=== PATIENT | female | born 1980 | race Caucasian/White ===

== ENCOUNTER → 2019-12-19 13:21 | Outpatient (BNVA) | payer OTHER, SELFPAY | PROVIDERS: PCP Internal Medicine; Visit Provider Physician Assistant | DX: Z76.89 Persons encountering health services in other specified circumstances (principal) ==

== ENCOUNTER 2020-01-26 08:19 | Outpatient (REF) | payer OTHER, SELFPAY | END 2020-01-26 08:20 | disposition home or self-care (01) | LOC: HO.LAB 08:19 | PROVIDERS: Visit Provider Internal Medicine | DX: Z20.828 Contact with and (suspected) exposure to other viral communicable diseases (principal) | CPT/HCPCS: C9803; U0003 ==

== ENCOUNTER → 2020-02-14 08:04 | Outpatient (BNVA) | payer OTHER, SELFPAY | PROVIDERS: PCP Internal Medicine; Referring Provider Internal Medicine; Visit Provider Physician Assistant | DX: Z76.89 Persons encountering health services in other specified circumstances (principal) ==

== ENCOUNTER → 2020-02-19 08:25 | Outpatient (BNVA) | payer OTHER, SELFPAY | PROVIDERS: PCP Internal Medicine; Referring Provider Internal Medicine; Visit Provider Dietitian, Registered | DX: Z76.89 Persons encountering health services in other specified circumstances (principal) ==

== ENCOUNTER → 2020-02-20 15:00 | Outpatient (BNV) | payer OTHER, SELFPAY | PROVIDERS: Visit Provider Internal Medicine | DX: D50.9 Iron deficiency anemia, unspecified (principal) | CPT/HCPCS: 99213; 99214; G2211 ==

== ENCOUNTER → 2020-03-12 08:11 | Outpatient (BNVA) | payer OTHER, SELFPAY | PROVIDERS: PCP Internal Medicine; Visit Provider Dietitian, Registered | DX: Z76.89 Persons encountering health services in other specified circumstances (principal) ==

== ENCOUNTER 2020-03-19 07:24 | Outpatient (REF) | payer OTHER, SELFPAY | END 2020-03-19 07:25 | disposition home or self-care (01) | LOC: HO.LAB 07:24 | PROVIDERS: PCP Internal Medicine; Visit Provider Internal Medicine | DX: Z20.822 Contact with and (suspected) exposure to COVID-19 (principal) | CPT/HCPCS: 36415; C9803; U0003 ==

== ENCOUNTER 2020-03-20 06:22 | Outpatient (REF) | payer OTHER, SELFPAY ==
[2020-03-20 07:08] LABS: MANUAL DIFF FLAG NO
[2020-03-20 07:15] LABS: Basophils Absolute Auto 0.1 X10*3/uL (0.0-0.2); Basophils Percent Auto 0.7 % (0-2); Eosinophils Absolute Auto 0.1 X10*3/uL (0.0-0.4); Eosinophils Percent Auto 1.4 % (0-4); Hematocrit 35.8 % (37-47); Hemoglobin 11.1 g/dl (12.0-16.0); Imm Gran Abs Auto 0.02 X10*3/uL (0.00-0.03); Imm Gran Pct Auto 0.2 % (0.0-0.4); Lymphocytes Absolute Auto 2.9 X10*3/uL (1.2-4.9); Lymphocytes Percent Auto 33.1 % (20-40); Mean Corpuscular Volume 83.8 fL (80-98); Mean Platelet Volume 9.6 fL (9.4-12.3); Monocytes Absolute Auto 0.7 X10*3/uL (0.1-1.2); Monocytes Percent Auto 7.9 % (2-11); Neutrophils Percent Auto 56.7 % (45-73); Platelet Count 489 X10*3/uL (160-400); Red Blood Count 4.27 X10*6/uL (4.20-5.50); Red Cell Distribution Width 14.1 % (11.0-16.0); White Blood Count 8.8 X10*3/uL (4.8-10.8)
[2020-03-20 07:32] LABS: Alanine Aminotransferase 9 U/L (0-31); Alkaline Phosphatase 99 U/L (39-117); Anion Gap 14 (12-20); Aspartate Amino Transferase 12 U/L (5-31); Bilirubin Total 0.4 mg/dL (0.0-1.0); Blood Urea Nitrogen 14 mg/dL (9-16); C Reactive Protein 0.11 mg/dL (< or = 0.50); Calcium 8.6 mg/dL (8.4-10.2); Carbon Dioxide 25 mmol/L (22-29); Chloride 105 mmol/L (96-108); Cholesterol 192 mg/dL; Estimated Glomerular Filt Rate > 60; Glucose Fasting 91 mg/dL (60-99); HDL Cholesterol 76 mg/dL; Iron 83 mcg/dL (30-160); LDL Cholesterol Calculated 106 mg/dl; Percent Iron Saturation 22 % (15-50); Sodium 140 mmol/L (135-145); Total Iron Binding Capacity 373 mcg/dL (228-428); Total Protein 6.8 g/dL (6.5-8.0); Triglycerides 54 mg/dL; Unsaturated Iron Binding 290 ug/dL
[2020-03-20 07:54] LABS: Ferritin 4 ng/mL (10-122); TSH reflex Free T4 2.15 mIU/mL (0.32-4.0); Vitamin D 25-OH Total 19.7 ng/mL (>30)
[2020-03-20 08:00] LABS: Estimated Average Glucose 103 mg/dL; Hemoglobin A1c % 5.2 %
[2020-03-20 08:11] LABS: Folate 9.7 ng/mL (> or = 4.0); Vitamin B12 449 pg/mL (200-900)
[2020-03-21 06:17] LABS: Insulin Level Total 11.7 uIU/mL
[2020-03-21 16:52] LABS: Calcium (PTHI) 8.8 mg/dL (8.6-10.2); PTHI 100 pg/mL (14-64)
[2020-03-23 12:12] LABS: Vitamin B1 7 nmol/L (8-30)
[2020-03-23 16:07] LABS: Zinc 67 mcg/dL (60-130)
[2020-03-26 17:47] LABS: Vitamin A 36 mcg/dL (38-98)
== END 2020-03-20 06:23 | disposition home or self-care (01) ==
LOC: HO.LAB 06:22
PROVIDERS: PCP Internal Medicine; Referring Provider Internal Medicine; Visit Provider Physician Assistant
DX: E66.01 Morbid (severe) obesity due to excess calories (principal); K91.2 Postsurgical malabsorption, not elsewhere classified; Z98.84 Bariatric surgery status; Z90.3 Acquired absence of stomach [part of]
CPT/HCPCS: 36415; 80053; 80061; 82306; 82607; 82728; 82746; 83036; 83525; 83540; 83970; 84425; 84443; 84590; 84630; 85025; 86140

== ENCOUNTER 2020-04-08 08:41 | Outpatient (REF) | payer OTHER, SELFPAY ==
--- NOTE | 2020-04-08 08:45 | FL_ITS ---
EXAMINATION: XR GI SERIES CLINICAL INFORMATION: Dysphagia. Post gastric bypass. COMPARISON: Previous upper GI most recent May 2016 TECHNIQUE: Upper GI was performed using thin and thick barium and effervescent granules. A barium tablet was also administered. FINDINGS: There is abnormal esophageal motility with retrograde peristalsis of liquid barium with the patient upright. No reflux could be documented with the patient prone. No significant hernia is seen. The barium tablet passed freely into the stomach. There are postsurgical changes from gastric bypass. There is a very small gastric remnant. No ulcer or mass is appreciated. There is no evidence of obstruction. FLUOROSCOPY TIME: 1.7 min Dose: 56 mgy, DAP 13 kinney per centimeter squared. 36 saved fluoroscopic images. FL/FL upper GI series IMPRESSION: Abnormal esophageal motility with retrograde peristalsis of liquid barium with the patient in the upright position. Stable postoperative changes from gastric bypass.
== END 2020-04-08 08:42 | disposition home or self-care (01) ==
LOC: HO.XRAY 08:41
PROVIDERS: Visit Provider Internal Medicine
DX: K21.9 Gastro-esophageal reflux disease without esophagitis (principal); J39.2 Other diseases of pharynx
CPT/HCPCS: 74240

== ENCOUNTER 2020-04-09 09:43 | Outpatient (REF) | payer OTHER, SELFPAY | END 2020-04-09 09:44 | disposition home or self-care (01) | LOC: HO.LAB 09:43 | PROVIDERS: Visit Provider Internal Medicine | DX: Z20.822 Contact with and (suspected) exposure to COVID-19 (principal) | CPT/HCPCS: 36415; C9803; U0003; U0005 ==

== ENCOUNTER → 2020-07-31 08:20 | Outpatient (BNVA) | payer OTHER, SELFPAY | PROVIDERS: PCP Internal Medicine; Visit Provider Dietitian, Registered | DX: E66.9 Obesity, unspecified (principal); Z68.33 Body mass index [BMI] 33.0-33.9, adult | CPT/HCPCS: 97803 ==

== ENCOUNTER → 2020-08-28 08:17 | Outpatient (BNVA) | payer OTHER, SELFPAY | PROVIDERS: PCP Internal Medicine; Visit Provider Dietitian, Registered ==

== ENCOUNTER → 2020-11-12 09:23 | Outpatient (BNVA) | payer OTHER, SELFPAY | PROVIDERS: PCP Internal Medicine; Referring Provider Internal Medicine; Visit Provider Physician Assistant ==

== ENCOUNTER 2021-02-11 10:57 | Outpatient (REF) | payer OTHER, SELFPAY | END 2021-02-11 10:58 | disposition home or self-care (01) | LOC: HO.LAB 10:57 | PROVIDERS: Visit Provider Internal Medicine | DX: Z20.822 Contact with and (suspected) exposure to COVID-19 (principal) | CPT/HCPCS: C9803; U0003; U0005 ==

== ENCOUNTER → 2021-03-23 09:53 | Outpatient (BNVA) | payer OTHER, SELFPAY | PROVIDERS: PCP Internal Medicine; Referring Provider Internal Medicine; Visit Provider Nurse Practitioner Family | DX: K58.2 Mixed irritable bowel syndrome (principal); K21.9 Gastro-esophageal reflux disease without esophagitis; R13.14 Dysphagia, pharyngoesophageal phase | CPT/HCPCS: 99202 ==

== ENCOUNTER 2021-04-07 08:37 | Outpatient (REF) | payer OTHER, SELFPAY ==
[2021-04-07 10:59] LABS: TSH reflex Free T4 1.22 uIU/mL (0.32-4.0)
[2021-04-07 11:43] LABS: Folate 10.8 ng/mL (> or = 4.0); Vitamin B12 453 pg/mL (200-900)
[2021-04-09 14:21] LABS: Transglutaminase Ab IgG <1.0 U/mL; Transglutaminase IgA <1.0 U/mL
[2021-04-12 15:51] LABS: Vitamin D 25-OH, D2 <4 ng/mL; Vitamin D 25-OH, D3 12 ng/mL; Vitamin D 25-OH, Total 12 ng/mL (30-100)
== END 2021-04-07 08:38 | disposition home or self-care (01) ==
LOC: HO.LAB 08:37
PROVIDERS: PCP Internal Medicine; Visit Provider Nurse Practitioner Family
DX: R10.11 Right upper quadrant pain (principal); R19.7 Diarrhea, unspecified; R14.0 Abdominal distension (gaseous); E55.9 Vitamin D deficiency, unspecified
CPT/HCPCS: 36415; 82306; 82607; 82746; 84443; 86364

== ENCOUNTER → 2021-07-28 09:48 | Outpatient (BNVA) | payer OTHER, SELFPAY | PROVIDERS: PCP Internal Medicine; Referring Provider Internal Medicine; Visit Provider Physician Assistant Surgical | DX: E66.9 Obesity, unspecified (principal); Z68.35 Body mass index [BMI] 35.0-35.9, adult | CPT/HCPCS: 99212 ==

== ENCOUNTER 2021-08-24 08:39 | Outpatient (REF) | payer OTHER, SELFPAY ==
[2021-08-24 11:23] LABS: Ferritin 2 ng/mL (10-250)
[2021-08-24 11:26] LABS: Iron 32 mcg/dL (30-160); Percent Iron Saturation 8 % (15-50); Total Iron Binding Capacity 415 mcg/dL (228-428); Unsaturated Iron Binding 383 ug/dL
[2021-08-24 11:48] LABS: Folate 11.7 ng/mL (> or = 4.0); Vitamin B12 314 pg/mL (200-900)
[2021-08-27 16:41] LABS: Vitamin A 36 mcg/dL (38-98)
[2021-08-30 14:56] LABS: Vitamin B1 7 nmol/L (8-30)
== END 2021-08-24 08:40 | disposition home or self-care (01) ==
LOC: HO.LAB 08:39
PROVIDERS: PCP Internal Medicine; Visit Provider Physician Assistant Surgical
DX: D50.9 Iron deficiency anemia, unspecified (principal); E66.9 Obesity, unspecified
CPT/HCPCS: 36415; 82306; 82607; 82728; 82746; 83540; 84425; 84590

== ENCOUNTER 2022-03-11 12:56 | Outpatient (REF) | payer OTHER, SELFPAY | END 2022-03-11 12:57 | disposition home or self-care (01) | LOC: HO.MDS 12:56 | PROVIDERS: Visit Provider Internal Medicine | DX: D50.9 Iron deficiency anemia, unspecified (principal) | CPT/HCPCS: 96365; J1756 ==

== ENCOUNTER 2022-03-18 12:43 | Outpatient (REF) | payer OTHER, SELFPAY | END 2022-03-18 12:44 | disposition home or self-care (01) | LOC: HO.MDS 12:43 | PROVIDERS: PCP Internal Medicine; Visit Provider Internal Medicine | DX: D50.9 Iron deficiency anemia, unspecified (principal) | CPT/HCPCS: 96365; J1756 ==

== ENCOUNTER 2022-03-26 12:48 | Outpatient (REF) | payer OTHER, SELFPAY | END 2022-03-26 12:49 | disposition home or self-care (01) | LOC: HO.MDS 12:48 | PROVIDERS: Visit Provider Internal Medicine | DX: D50.9 Iron deficiency anemia, unspecified (principal) | CPT/HCPCS: 96365; J1756 ==

== ENCOUNTER 2022-04-01 12:47 | Outpatient (REF) | payer OTHER, SELFPAY | END 2022-04-01 12:48 | disposition home or self-care (01) | LOC: HO.MDS 12:47 | PROVIDERS: Visit Provider Internal Medicine | DX: D50.9 Iron deficiency anemia, unspecified (principal) | CPT/HCPCS: 96365; J1756 ==

== ENCOUNTER 2022-04-08 12:46 | Outpatient (REF) | payer OTHER, SELFPAY | END 2022-04-08 12:47 | disposition home or self-care (01) | LOC: HO.MDS 12:46 | PROVIDERS: Visit Provider Internal Medicine | DX: D50.9 Iron deficiency anemia, unspecified (principal) | CPT/HCPCS: 96365; J1756 ==

== ENCOUNTER → 2022-04-12 08:36 | Outpatient (BNVA) | payer OTHER, SELFPAY | PROVIDERS: PCP Internal Medicine; Visit Provider Nurse Practitioner Family | DX: K59.00 Constipation, unspecified (principal); D50.9 Iron deficiency anemia, unspecified; K21.9 Gastro-esophageal reflux disease without esophagitis | CPT/HCPCS: 99212 ==

== ENCOUNTER 2022-10-15 09:05 | Outpatient (REF) | payer OTHER, SELFPAY ==
--- NOTE | ~2022-10-15 | MM_ITS ---
EXAMINATION: MM SCREENING DIGITAL BREAST TOMOSYNTHESIS, BILATERAL CLINICAL INFORMATION: Screening. Asymptomatic. COMPARISON: Mammography: This is a baseline study. TECHNIQUE: Digital breast tomosynthesis is performed in both the craniocaudal and mediolateral oblique views along with computer-aided detection (CAD). Synthesized 2D images are generated from the tomosynthesis. FINDINGS: There are scattered areas of fibroglandular density (ACR BI-RADS breast composition Category b). There are no significant masses, abnormal calcifications, or other abnormalities. MM/MM tomosynthesis screening BI IMPRESSION: No mammographic evidence of malignancy. ASSESSMENT: BI-RADS BI-RADS 1 - Negative RECOMMENDATION: Routine annual mammography screening. 1 year F/U This examination should not preclude the clinical evaluation of a suspicious palpable abnormality. This patient's information was entered into a reminder system with a target due date for their next mammogram.
== END 2022-10-15 09:06 | disposition home or self-care (01) ==
LOC: HO.MAMMO 09:05
PROVIDERS: PCP Internal Medicine; Visit Provider Internal Medicine
DX: Z12.31 Encounter for screening mammogram for malignant neoplasm of breast (principal)
CPT/HCPCS: 77063; 77067

== ENCOUNTER → 2022-10-15 09:15 | Outpatient (BNV) | payer OTHER, SELFPAY | PROVIDERS: PCP Internal Medicine; Visit Provider Radiology Diagnostic Radiology | DX: Z12.31 Encounter for screening mammogram for malignant neoplasm of breast (principal) | CPT/HCPCS: 77063; 77067 ==

== ENCOUNTER 2022-12-01 08:49 | Outpatient (AMB) | payer OTHER, SELFPAY ==
--- NOTE | 2022-12-01 09:01 | MHC.OFFVISWM ---
Intake VS Expanded 12/01/22 09:07 Height 5 ft 2 in Weight 193 lb 12.8 oz BMI 35.4 BP 134/60 Blood Pressure Location Rt brachial Blood Pressure Position Sitting Pulse 91 Pulse Source Pulse Oximeter Temp 98.2 F Temperature Source Temporal Artery Scan Pulse Oximetry 100 Oxygen Delivery Method Room Air Body Fat 84.6 Body Fat Percentage 43.7 Free Fat Mass 109.2 Muscle Mass 103.6 Visceral Mass 10.0 Water Mass 78.0 BMR 1,536 Intake Visit Reasons: (OV) PO GBP 02/16/2016 Certified Recreational Therapist Required: No Allergies oxycodone [OXYCODONE] Allergy (Severe, Verified 12/01/22 09:04) ANAPHYLAXIS (Tylenol #3 is o.k.) morphine [MORPHINE] Allergy (Intermediate, Verified 12/01/22 09:04) HIVES/DIFF BREATHING (tylenol #3 is o.k.) Medication List - Last Reconciled 12/01/22 by BELTRAN Clifford albuterol sulfate 90 mcg/actuation (Ventolin HFA) 2 puffs inhalation Q4-6H PRN albuterol sulfate 90 mcg/actuation 2 puffs PO QID PRN 30 days cetirizine 10 mg PO DAILY fluticasone propionate 110 mcg/actuation (Flovent HFA) 2 puffs inhalation BID 30 days hydroxyzine HCl 25 mg PO Q8H PRN montelukast 10 mg PO DAILY 90 days omeprazole 40 mg PO DAILY polyethylene glycol 3350 (Miralax) 17 grams PO DAILY HPI HPI Comments History of Present Illness Details 42-year-old female presents to the office for follow-up gastric bypass performed on 02/16/2016. Weight today is 193.8 lb with a BMI of 35.5. She was last seen in the office on 07/28/2021 with a weight of 193.6 lb and BMI of 35.4. States she would like to lose a little more weight. She was lost to follow up as she did not feel the need to come in to the office. not taking mvi Not following a meal plan Premier protein RTD shake another shake or salald w 4 oz chicken shake or small meal (1 serving spoon of rice, 1/2 beans, 1/2 veg or 1/2 meat) exercise: walking outside 30-45 min 2 x per day Any post op complications: none JAKE: resolved DM: never HTN: never Hyperlipidemia: never GERD:?0-5 scale ??0 = no symptoms ??1 = symptoms noticeable but not bothersome 2 =symptoms bothersome but not daily ? 3 = symptoms bothersome and daily 4 = symptoms affect daily activities 5 = symptoms are incapacitating, unable to do daily activities ? How bad is the heartburn: 0 ? Heartburn while lying down: 0 ? Heartburn when standing up: 0 ? Heartburn after meals: 0 ? Does heartburn change your diet: 0 ? Does heartburn wake you up from sleep: 0 ? Do you have difficulty swallowin ? Do you have pain with swallowin ? If you take medicine for your reflux, does this affect your daily life: 0 Satisfaction with present condition - satisfied or not satisfied: not satisifed [facility] Medical History Vitamin D deficiency Allergic rhinitis Anxiety GERD (gastroesophageal reflux disease) Asthma Obesity (BMI 30-39.9) Intestinal malabsorption following gastrectomy Surgical History History of tubal ligation History of breast biopsy H/O bilateral breast reduction surgery History of cholecystectomy History of appendectomy S/P gastric bypass Hx of laparoscopic gastric banding Hx of appendectomy Hx laparoscopic cholecystectomy Family History Father No problems noted. Mother Arthritis Obesity Brother No problems noted. Brother No problems noted. Sister No problems noted. Sister No problems noted. Sister No problems noted. Son No problems noted. Son No problems noted. Daughter No problems noted. Father No problems noted. 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 [employer] Cognitive needs: No Hearing needs: No Vision needs: Yes Review of Systems Const All systems reviewed & are unremarkable except as noted in HPI and below Physical Exam Vital Signs: Last Vital Signs Temp 98.2 F 12/01/22 09:07 Pulse 91 12/01/22 09:07 BP 134/60 12/01/22 09:07 Pulse Ox 100 12/01/22 09:07 Oxygen Delivery Method Room Air 12/01/22 09:07 BMI result Body Mass Index 35.4 Const General: cooperative and no acute distress Orientation/consciousness: patient oriented x3 Resp Effort & Inspection: normal respiratory effort Auscultation: clear to auscultation bilaterally Cardio Rate: regular rate Rhythm: regular rhythm GI Inspection: Yes normal to inspection and Yes incision (well healed) Palpation (GI): Soft to palpation and no masses Neuro General: patient oriented x3 Assessment & Plan Assessment & Plan (1) S/P gastric bypass: Comment: FRANCISCO 02/16/16, Dr. Salazar Code(s): Z98.84 - Bariatric surgery status Plan: meal plan : Premier protein RTD shake meal 6 forks/6 forks x 2 continue PPI check yearly labs start celebrate mvi w iron daily and ginger + D bid [employer] staci 300 calories daily or more rtc 6 weeks Orders: Orders Lipid Panel Today D50.9 - Iron deficiency anemia, unspecified, E55.9 - Vitamin D deficiency, unspecified, K91.2 - Postsurgical malabsorption, not elsewhere classified, Z90.3 - Acquired absence of stomach [part of], Z98.84 - Bariatric surgery status IRON PROFILE Today D50.9 - Iron deficiency anemia, unspecified, E55.9 - Vitamin D deficiency, unspecified, K91.2 - Postsurgical malabsorption, not elsewhere classified, Z90.3 - Acquired absence of stomach [part of], Z98.84 - Bariatric surgery status Complete Blood Count Auto Diff Today D50.9 - Iron deficiency anemia, unspecified, E55.9 - Vitamin D deficiency, unspecified, K91.2 - Postsurgical malabsorption, not elsewhere classified, Z90.3 - Acquired absence of stomach [part of], Z98.84 - Bariatric surgery status Vitamin B1 Today D50.9 - Iron deficiency anemia, unspecified, E55.9 - Vitamin D deficiency, unspecified, K91.2 - Postsurgical malabsorption, not elsewhere classified, Z90.3 - Acquired absence of stomach [part of], Z98.84 - Bariatric surgery status C Reactive Protein Today D50.9 - Iron deficiency anemia, unspecified, E55.9 - Vitamin D deficiency, unspecified, K91.2 - Postsurgical malabsorption, not elsewhere classified, Z90.3 - Acquired absence of stomach [part of], Z98.84 - Bariatric surgery status Ferritin Today D50.9 - Iron deficiency anemia, unspecified, E55.9 - Vitamin D deficiency, unspecified, K91.2 - Postsurgical malabsorption, not elsewhere classified, Z90.3 - Acquired absence of stomach [part of], Z98.84 - Bariatric surgery status Vitamin D 25-OH Total Today D50.9 - Iron deficiency anemia, unspecified, E55.9 - Vitamin D deficiency, unspecified, K91.2 - Postsurgical malabsorption, not elsewhere classified, Z90.3 - Acquired absence of stomach [part of], Z98.84 - Bariatric surgery status Insulin Today D50.9 - Iron deficiency anemia, unspecified, E55.9 - Vitamin D deficiency, unspecified, K91.2 - Postsurgical malabsorption, not elsewhere classified, Z90.3 - Acquired absence of stomach [part of], Z98.84 - Bariatric surgery status Vitamin B12 and Folate Today D50.9 - Iron deficiency anemia, unspecified, E55.9 - Vitamin D deficiency, unspecified, K91.2 - Postsurgical malabsorption, not elsewhere classified, Z90.3 - Acquired absence of stomach [part of], Z98.84 - Bariatric surgery status Zinc Today D50.9 - Iron deficiency anemia, unspecified, E55.9 - Vitamin D deficiency, unspecified, K91.2 - Postsurgical malabsorption, not elsewhere classified, Z90.3 - Acquired absence of stomach [part of], Z98.84 - Bariatric surgery status Vitamin A Today D50.9 - Iron deficiency anemia, unspecified, E55.9 - Vitamin D deficiency, unspecified, K91.2 - Postsurgical malabsorption, not elsewhere classified, Z90.3 - Acquired absence of stomach [part of], Z98.84 - Bariatric surgery status PTHI Today D50.9 - Iron deficiency anemia, unspecified, E55.9 - Vitamin D deficiency, unspecified, K91.2 - Postsurgical malabsorption, not elsewhere classified, Z90.3 - Acquired absence of stomach [part of], Z98.84 - Bariatric surgery status TSH reflex Free T4 Today D50.9 - Iron deficiency anemia, unspecified, E55.9 - Vitamin D deficiency, unspecified, K91.2 - Postsurgical malabsorption, not elsewhere classified, Z90.3 - Acquired absence of stomach [part of], Z98.84 - Bariatric surgery status Basic Metabolic Panel Today D50.9 - Iron deficiency anemia, unspecified, E55.9 - Vitamin D deficiency, unspecified, K91.2 - Postsurgical malabsorption, not elsewhere classified, Z90.3 - Acquired absence of stomach [part of], Z98.84 - Bariatric surgery status Coding Level of Care Code Est Pt Level 4 (89653) Diagnoses S/P gastric bypass Z98.84 Time Spent (min) 45
[2022-12-01 09:07] VITALS: BP 134/60; PULSE 91; TEMP 36.8; O2SAT 100; BMI 35.4
== END 2022-12-01 09:36 | disposition home or self-care (01) ==
PROVIDERS: PCP Internal Medicine; Visit Provider Physician Assistant Surgical
DX: E66.9 Obesity, unspecified (principal); Z68.35 Body mass index [BMI] 35.0-35.9, adult; Z90.3 Acquired absence of stomach [part of]; Z98.84 Bariatric surgery status
CPT/HCPCS: 99215

== ENCOUNTER → 2022-12-01 08:49 | Outpatient (BNVA) | payer OTHER, SELFPAY | PROVIDERS: PCP Internal Medicine; Visit Provider Physician Assistant Surgical | DX: Z98.84 Bariatric surgery status (principal) | CPT/HCPCS: 99212 ==

== ENCOUNTER 2023-01-05 11:58 | Outpatient (REF) | payer OTHER, SELFPAY | END 2023-01-05 11:59 | disposition home or self-care (01) | LOC: HO.MDS 11:58 | PROVIDERS: Visit Provider Internal Medicine | DX: D50.8 Other iron deficiency anemias (principal) | CPT/HCPCS: 96365; J1756 ==

== ENCOUNTER 2023-01-14 08:40 | Outpatient (REF) | payer OTHER, SELFPAY | END 2023-01-14 08:41 | disposition home or self-care (01) | LOC: HO.MDS 08:40 | PROVIDERS: Visit Provider Internal Medicine | DX: D50.8 Other iron deficiency anemias (principal) | CPT/HCPCS: 96365; J1756 ==

== ENCOUNTER 2023-01-19 08:44 | Outpatient (REF) | payer OTHER, SELFPAY | END 2023-01-19 08:45 | disposition home or self-care (01) | LOC: HO.MDS 08:44 | PROVIDERS: Visit Provider Internal Medicine | DX: D50.8 Other iron deficiency anemias (principal) | CPT/HCPCS: 96365; J1756 ==

== ENCOUNTER 2023-01-24 11:31 | Outpatient (REF) | payer OTHER, SELFPAY | END 2023-01-24 11:32 | disposition home or self-care (01) | LOC: HO.MDS 11:31 | PROVIDERS: Visit Provider Internal Medicine | DX: D50.8 Other iron deficiency anemias (principal) | CPT/HCPCS: 96365; J1756 ==

== ENCOUNTER 2023-02-04 08:57 | Outpatient (REF) | payer OTHER, SELFPAY | END 2023-02-04 08:58 | disposition home or self-care (01) | LOC: HO.MDS 08:57 | PROVIDERS: Visit Provider Internal Medicine | DX: D50.8 Other iron deficiency anemias (principal) | CPT/HCPCS: 96365; J1756 ==

== ENCOUNTER 2023-06-06 10:31 | Outpatient (AMB) | payer OTHER, SELFPAY ==
--- NOTE | 2023-06-06 10:36 | MHC.PC.OV ---
Vital Signs 06/06/23 10:39 Height 5 ft 2 in Weight 194 lb 8 oz BMI 35.6 BP 130/72 Blood Pressure Location Rt brachial Position Sitting Pulse 63 Pulse Source Pulse Oximeter Pulse Oximetry (%) 100 Oxygen Delivery Method Room Air Intake Visit Reasons: 6mth f/u ( rescheduled) Intake Note: Patient is here to follow up on Asthma, Arthralgia, GERD, Anxiety. Complaint of left arm pain ongoing for two months. Milieu Manager Required: No Operations Analyst: Not Required per policy Accompanied by: Self / Same As Patient Allergies oxycodone [OXYCODONE] Allergy (Severe, Verified 06/06/23 16:07) ANAPHYLAXIS (Tylenol #3 is o.k.) morphine [MORPHINE] Allergy (Intermediate, Verified 06/06/23 16:07) HIVES/DIFF BREATHING (tylenol #3 is o.k.) Medication List - Last Reconciled 06/06/23 by Gabriele Means MD albuterol sulfate 90 mcg/actuation (Ventolin HFA) 2 puffs inhalation Q4-6H PRN albuterol sulfate 90 mcg/actuation 2 puffs PO QID PRN 30 days cetirizine 10 mg PO DAILY fluticasone propionate 110 mcg/actuation (Flovent HFA) 2 puffs inhalation BID 30 days hydroxyzine HCl 25 mg PO Q8H PRN montelukast 10 mg PO DAILY 90 days omeprazole 40 mg PO DAILY polyethylene glycol 3350 (Miralax) 17 grams PO DAILY Tobacco use date assessed: 06/06/23 Dental Screening Dental Screen Date: 06/06/23 Did you have a dental visit in the last 12 months?: Yes Did you have a dental problem in the last 6 months where you did not have access to dental care?: No Was dental information given to patient?: Patient has dentist HPI 6mth f/u ( rescheduled) HPI Details Patient comes in today for her follow up visit She continues to follow up with hematology regularly for IV iron infusions every 6 months or so Her last H/H in December 2022 were still low at 9.9/32.8 and she has not had any follow up labs done since She is scheduled for her next IV iron infusion in a couple of weeks on 06/22/2023 States that she has been experiencing increased pain over her left shoulder for a while now and lately has hardly been able to raise her left arm above the shoulder level due to the pain Admits that she does have a habit of sleeping on her left side often but other than that, does not recall any recent injury or trauma to her left shoulder She denies any headaches or dizziness; relates (+) fatigue but this is likely due to her anemia She denies any chest pains, no increased SOB No nausea/vomiting, no abdominal pain No change in bowel habits noted Needs her Omeprazole Rx refilled today PFSH Medical History Vitamin D deficiency Allergic rhinitis Anxiety GERD (gastroesophageal reflux disease) Asthma Obesity (BMI 30-39.9) Intestinal malabsorption following gastrectomy Surgical History History of tubal ligation History of breast biopsy H/O bilateral breast reduction surgery History of cholecystectomy History of appendectomy S/P gastric bypass Hx of laparoscopic gastric banding Hx of appendectomy Hx laparoscopic cholecystectomy Family History Father No problems noted. Mother Arthritis Obesity Brother No problems noted. Brother No problems noted. Sister No problems noted. Sister No problems noted. Sister No problems noted. Son No problems noted. Son No problems noted. Daughter No problems noted. Father No problems noted. 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 1. Little interest or pleasure in doing things: not at all 2. Feeling down, depressed, or hopeless: not at all 3. Trouble falling or staying asleep, or sleeping too much: not at all 4. Feeling tired or having little energy: not at all 5. Poor appetite or overeating: not at all 6. Feeling bad about yourself - or that you are a failure or have let yourself or your family down: not at all 7. Trouble concentrating on things, such as reading the newspaper or watching television: not at all 8. Moving or speaking so slowly that other people could have noticed. Or the opposite - being so fidgety or restless that you have been moving around a lot more than usual: not at all 9. Thoughts that you would be better off or of hurting yourself in some way: not at all Total score: 0 Depression Screening Interpretation: Negative Depression Screening Done: Yes 74651 - PHQ-9 Billing: Yes Source: Developed by Drs. Dom Britt, Ami Pratt, Americo Pastrana and colleagues, with an educational tseven from [employer]. Thrive Questionnaire Date Thrive assessed: 06/06/23 I am a: Patient What is your living situation today?: I have a steady place to live Within the past 12 months, did the food you bought not last and you didn't have the money to get more?: Never true Within the past 12 months, did you worry whether your food would run out before you got money to buy more?: Never true Do you have trouble paying for medicines?: No Do you have trouble getting transportation to medical appointments?: No Do you have trouble paying your heating and electricity bill?: No Do you have trouble taking care of your child, family member or friend?: No Do you have trouble with day-to-day activities such as bathing, preparing meals, shopping, managing finances, etc.?: No Are you currently unemployed and looking for a job?: No Are you interested in more education?: No Currently or been in a relationship where the following occur: no concerns reported THRIVE Score: 0 AUDIT C Alcohol Use Questionnaire (AUDIT-C) 1. How often do you have a drink containing alcohol?: Never 3. How often do you have six or more drinks on one occasion?: Never Total Score: 0 Score Reviewed/Action Taken: Yes AMA-7 AMB Questionnaire AMA-7 Date AMA - 7 assessed: 06/06/23 Feeling nervous, anxious, or on edge: 0 = Not at all Not being able to stop or control worryin = Not at all Worrying too much about different things: 0 = Not at all Trouble relaxin = Not at all Being so restless that it is hard to sit still: 0 = Not at all Becoming easily annoyed or irritable: 0 = Not at all Feeling afraid as if something awful might happen: 0 = Not at all Total AMA-7 score (0-4 normal; 5-9 mild; 10-14 moderate; 15-21 severe): 0 Source: Developed by Drs. Dom Britt, Ami Pratt, Americo Pastrana and colleagues, with an educational steven from [employer]. Review of Systems Const Denies chills, Reports fatigue, Denies fever(s) and Denies headache(s) ENT Denies dysphagia, Denies dizziness, Denies otalgia, Denies headache(s), Denies neck pain, Denies odynophagia and Denies sore throat Card Denies chest pain, Denies rapid heart rate, Denies irregular heart rhythm, Denies palpitations and Denies dyspnea Resp Denies cough, Denies dyspnea and Denies wheezing GI Denies abdominal pain, Reports constipation (frequent), Denies dysphagia, Denies heartburn, Denies diarrhea, Denies nausea, Denies odynophagia and Denies vomiting Denies hematuria, Denies urinary frequency and Denies dysuria Musc Denies back pain, Reports arthralgias (recurrent, involving multiple joints; increased pain over L shoulder lately), Reports joint swelling (occasional) and Denies neck pain Skin/Breast Denies rash Neuro Denies dizziness, Denies headache(s) and Denies paresthesias Psych Denies anxiety and Denies depression Endo Reports fatigue and Denies palpitations Devin/Lymph Denies easy bruising Aller/Immun Denies wheezing Physical exam (Primary Care) Vital Signs: Last Vital Signs Pulse 63 06/06/23 10:39 BP 130/72 06/06/23 10:39 Pulse Ox 100 06/06/23 10:39 Oxygen Delivery Method Room Air 06/06/23 10:39 BMI result Body Mass Index 35.6 Tobacco/Smoking Status: Tobacco use Status Tobacco use date assessed 06/06/23 06/06/23 10:45 Patient Tobacco Use Status Never used Tobacco 06/06/23 10:45 e-Cigarette/Vaping Use Never Used 06/06/23 10:45 PHQ-9: PHQ-9 Score PHQ-9: Total score 0 06/06/23 11:09 Depression Screening Interpretation: Negative Thrive Assessment: Date of Thrive Assessment Date Thrive assessed 06/06/23 06/06/23 10:45 Currently or been in a relationship where the following occur: no concerns reported Const General: no acute distress and alert HENMT Ears: TM's normal bilaterally and EAC's normal Throat: Yes posterior oropharynx normal and Yes tonsils normal (no TP congestion) Neck Neck: Yes no lymphadenopathy and Yes supple Thyroid: Thyroid normal Resp Auscultation: clear to auscultation bilaterally, no rales and no wheezes Cardio Rate: regular rate Rhythm: regular rhythm Heart sounds: no murmurs GI Palpation (GI): Soft to palpation and nontender Auscultation: normal bowel sounds General: Yes no CVA tenderness Back/Spine/Pelvis Back: no CVA tenderness Thoracic/Lumbar Spine: No lumbar spinal tenderness Skin Rashes: no rashes Extrem General: Yes no clubbing, cyanosis or edema Left upper extremity: shoulder/upper arm Details: tenderness Location: of the A-C joint and abnormal ROM (limited due to pain); no swelling Results Reviewed Results Reviewed: Laboratory Tests 12/22/22 10:18 WBC 10.0 Hgb 9.9 L Hct 32.8 L Plt Count 547 H Assessment and Plan Assessment & Plan (1) Iron deficiency anemia: Code(s): D50.9 - Iron deficiency anemia, unspecified Qualifiers: Iron deficiency anemia type: unspecified iron deficiency Qualified Code(s): D50.9 - Iron deficiency anemia, unspecified Plan: Will send patient for labs to recheck her CBC RUDDY She was still anemic on her labs back in December 2022 and is scheduled for her next IV iron infusion in a couple of weeks Follow up with hematology as scheduled (2) Left shoulder pain: Code(s): M25.512 - Pain in left shoulder Qualifiers: Chronicity: unspecified Qualified Code(s): M25.512 - Pain in left shoulder Plan: Discussed that her left shoulder pain is most likely due to calcific tendinitis or bursitis Will send her for x-rays of the left shoulder for further evaluation Will also refer her to physical therapy for further evaluation and management (3) Arthralgia: Code(s): M25.50 - Pain in unspecified joint Qualifiers: Joint pain location: unspecified Qualified Code(s): M25.50 - Pain in unspecified joint Plan: Involving multiple joints Is concerned about her own risks for lupus or other inflammatory joint disease as her mother has been diagnosed with lupus and struggling with it for years She was previously sent for some additional labs for work up for her arthralgia and was advised that we will also include a Lyme disease titer and Hepatitis C test but she has not been able to get any of these done yet so far - will reorder these and advised patient to get these done RUDDY (4) Asthma: Code(s): J45.909 - Unspecified asthma, uncomplicated Qualifiers: Asthma severity: mild Asthma persistence: intermittent Asthma complication type: uncomplicated Qualified Code(s): J45.20 - Mild intermittent asthma, uncomplicated Plan: Stable Continue Albuterol HFA 1 to 2 inhalations Q 6 hours PRN (5) GERD (gastroesophageal reflux disease): Code(s): K21.9 - Gastro-esophageal reflux disease without esophagitis Qualifiers: Esophagitis presence: without esophagitis Qualified Code(s): K21.9 - Gastro-esophageal reflux disease without esophagitis Plan: Dietary restrictions reinforced Continue Omeprazole 20 mg QD - Rx refilled (6) Constipation: Code(s): K59.00 - Constipation, unspecified Qualifiers: Constipation type: unspecified constipation type Qualified Code(s): K59.00 - Constipation, unspecified Plan: Encouraged increased oral fluids and dietary fiber Has been prescribed Miralax and Senna Lax by GI previously but patient has not yet really started on these - was reportedly told by pharmacy that her insurance will not cover her Rx as they are available OTC Follow up with GI as scheduled (7) Vitamin D deficiency: Code(s): E55.9 - Vitamin D deficiency, unspecified Plan: Continue OTC Vitamin D3 2000 units QD and her Vitamin B-complex and Vitamin B12 tablets daily (8) Allergic rhinitis: Code(s): J30.9 - Allergic rhinitis, unspecified Qualifiers: Allergic rhinitis trigger: pollen Allergic rhinitis seasonality: seasonal Qualified Code(s): J30.1 - Allergic rhinitis due to pollen Plan: Continue Cetirizine 10 mg once a day as needed, Montelukast 10 mg once a day and Fluticasone nasal spray 50 mcg 1 spray into each nostril once a day (9) Anxiety: Code(s): F41.9 - Anxiety disorder, unspecified Plan: Continue Escitalopram 10 mg once a day and Hydroxyzine 25 mg every 8 hours as needed (10) Obesity (BMI 30-39.9): Comment: S/P gastric bypass surgery 02/2016 Code(s): E66.9 - Obesity, unspecified Plan: Reinforced diet/exercise as tolerated/lose weight Used to see Weight Management but states that she has not been back to see them in a few years and prefers not to return there Plan Will have patient recheck her labs again in 6 months for follow up To return in 6 months for her next annual physical examination Orders: Orders Comprehensive Met. Panel Today D50.9 - Iron deficiency anemia, unspecified IRON PROFILE Today D50.9 - Iron deficiency anemia, unspecified XR shoulder LT min 2V Today M25.512 - Pain in left shoulder PT Evaluation and Treatment Today M25.512 - Pain in left shoulder Comprehensive Moosic. Panel Fast 6 Months E78.00 - Pure hypercholesterolemia, unspecified, Z00.00 - Encounter for general adult medical examination without abnormal findings Vitamin D 25-OH Total 6 Months E55.9 - Vitamin D deficiency, unspecified, Z00.00 - Encounter for general adult medical examination without abnormal findings Rheumatoid Factor Today M25.50 - Pain in unspecified joint Erythrocyte Sedimentation Rate Today M25.50 - Pain in unspecified joint, M79.7 - Fibromyalgia Lyme IgG/IgM w/reflex to WB Today M25.50 - Pain in unspecified joint Hepatitis C Antibody Reflex Today M25.50 - Pain in unspecified joint Complete Blood Count Auto Diff Today D50.9 - Iron deficiency anemia, unspecified, D64.9 - Anemia, unspecified TSH reflex Free T4 Today D50.9 - Iron deficiency anemia, unspecified, R53.83 - Other fatigue Vitamin B12 and Folate Today D50.9 - Iron deficiency anemia, unspecified, E53.8 - Deficiency of other specified B group vitamins Vitamin D 25-OH Total Today D50.9 - Iron deficiency anemia, unspecified, E55.9 - Vitamin D deficiency, unspecified Complete Blood Count Auto Diff 6 Months D64.9 - Anemia, unspecified, Z00.00 - Encounter for general adult medical examination without abnormal findings Lipid Panel 6 Months E78.00 - Pure hypercholesterolemia, unspecified, Z00.00 - Encounter for general adult medical examination without abnormal findings TSH reflex Free T4 6 Months E78.00 - Pure hypercholesterolemia, unspecified, Z00.00 - Encounter for general adult medical examination without abnormal findings UA CC w/rflx Micro + Cult 6 Months R30.0 - Dysuria, Z00.00 - Encounter for general adult medical examination without abnormal findings MAGDALENO Reflex Titer and Pattern Today M25.50 - Pain in unspecified joint C Reactive Protein Today M25.50 - Pain in unspecified joint Medications: Refilled omeprazole 40 mg PO DAILY 30 caps 3RF K21.9 - Gastro-esophageal reflux disease without esophagitis Coding Level of Care Code Est Pt Level 4 (21266) Diagnoses Iron deficiency anemia, unspecified iron deficiency anemia type D50.9 Iron deficiency anemia type: unspecified iron deficiency Left shoulder pain, unspecified chronicity M25.512 Chronicity: unspecified Arthralgia, unspecified joint M25.50 Joint pain location: unspecified Mild intermittent asthma without complication J45.20 Asthma severity: mild Asthma persistence: intermittent Asthma complication type: uncomplicated Gastroesophageal reflux disease without esophagitis K21.9 Esophagitis presence: without esophagitis Constipation, unspecified constipation type K59.00 Constipation type: unspecified constipation type Vitamin D deficiency E55.9 Seasonal allergic rhinitis due to pollen J30.1 Allergic rhinitis trigger: pollen Allergic rhinitis seasonality: seasonal Anxiety F41.9 Obesity (BMI 30-39.9) E66.9
[2023-06-06 10:39] VITALS: BP 130/72; PULSE 63; O2SAT 100; BMI 35.6
== END 2023-06-06 11:15 | disposition home or self-care (01) ==
PROVIDERS: PCP Internal Medicine; Visit Provider Internal Medicine
DX: D50.9 Iron deficiency anemia, unspecified (principal); M25.512 Pain in left shoulder; M25.50 Pain in unspecified joint; J45.20 Mild intermittent asthma, uncomplicated; K21.9 Gastro-esophageal reflux disease without esophagitis; K59.00 Constipation, unspecified; E55.9 Vitamin D deficiency, unspecified; J30.1 Allergic rhinitis due to pollen; F41.9 Anxiety disorder, unspecified; E66.9 Obesity, unspecified
CPT/HCPCS: 99214

== ENCOUNTER 2023-06-10 09:27 | Outpatient (REF) | payer OTHER, SELFPAY ==
[2023-06-10 09:53] LABS: MANUAL DIFF FLAG NO
[2023-06-10 10:43] LABS: Basophils Absolute Auto 0.1 X10*3/uL (0.0-0.2); Basophils Percent Auto 0.8 % (0-2); Eosinophils Absolute Auto 0.1 X10*3/uL (0.0-0.4); Eosinophils Percent Auto 0.8 % (0-4); Hematocrit 39.1 % (37.0-47.0); Hemoglobin 12.3 g/dl (12.0-16.0); Imm Gran Abs Auto 0.04 X10*3/uL (0.00-0.03); Imm Gran Pct Auto 0.4 % (0.0-0.4); Lymphocytes Absolute Auto 2.1 X10*3/uL (1.2-4.9); Lymphocytes Percent Auto 23.4 % (20-40); Mean Corpuscular HGB Conc 31.5 g/dl (31.0-35.0); Mean Corpuscular Hemoglobin 26.7 pg (27.0-33.0); Mean Platelet Volume 9.5 fL (9.4-12.3); Monocytes Absolute Auto 0.6 X10*3/uL (0.1-1.2); Monocytes Percent Auto 6.5 % (2-11); Neutrophils Absolute Auto 6.2 x10*3/uL (2.0-8.3); Neutrophils Percent Auto 68.1 % (45-73); Platelet Count 500 X10*3/uL (160-400); Red Cell Distribution Width 13.9 % (11.0-16.0); White Blood Count 9.1 X10*3/uL (4.8-10.8)
[2023-06-10 11:16] LABS: Appearance Urine Clear; Color Urine Dark Yellow; Glucose Urine UA Negative (Negative); Leukocyte Esterase Urine Negative (Negative); Nitrite Urine Negative (Negative); PH 5.5 (5.0-9.0); Specific Gravity - Urine 1.025 (1.005-1.025); Urine Blood Negative (Negative); Urine Ketones Trace mg/dL (Negative); Urine Protein Trace mg/dL (Neg-Trace)
[2023-06-10 11:21] LABS: Erythrocyte Sedimentation Rate 9 MM/HR (0-20)
[2023-06-10 11:42] LABS: Alanine Aminotransferase 13 U/L (0-31); Alkaline Phosphatase 99 U/L (39-117); Anion Gap 12 (12-20); Aspartate Amino Transferase 17 U/L (5-31); Bilirubin Total 0.5 mg/dL (0.0-1.0); Blood Urea Nitrogen 14 mg/dL (9-16); C Reactive Protein 0.14 mg/dL (< or = 0.50); Calcium 8.9 mg/dL (8.4-10.2); Carbon Dioxide 27 mmol/L (22-29); Chloride 106 mmol/L (96-108); Cholesterol 192 mg/dL (<200); Estimated Glomerular Filt Rate > 60; Glucose Fasting 86 mg/dL (60-99); Glucose Random 87 mg/dL (60-115); HDL Cholesterol 69 mg/dL (>40); Iron 70 mcg/dL (30-160); LDL Cholesterol Calculated 108 mg/dL (<100); Percent Iron Saturation 21 % (15-50); Potassium 3.9 mmol/L (3.3-5.1); Sodium 141 mmol/L (135-145); Total Iron Binding Capacity 332 mcg/dL (228-428); Total Protein 7.2 g/dL (6.5-8.0); Triglycerides 77 mg/dL (<150); Unsaturated Iron Binding 262 ug/dL
[2023-06-10 11:43] LABS: Rheumatoid Factor < 13.0 IU/mL (<15.0)
[2023-06-10 11:50] LABS: ~HepC Num1 0.11 S/CO (0.00-0.79); ~Hepatitis C Antibody Nonreactive (Nonreactive)
[2023-06-10 11:57] LABS: TSH reflex Free T4 1.27 uIU/mL (0.32-4.0); Vitamin D 25-OH Total 9.2 ng/mL (>30)
[2023-06-10 12:04] LABS: Folate 10.4 ng/mL (> or = 4.0); Vitamin B12 344 pg/mL (200-900)
[2023-06-13 11:43] LABS: Anti Nuclear Antibody Screen POSITIVE (NEGATIVE)
[2023-06-13 20:08] LABS: Lyme Abs Screen <0.90 index
== END 2023-06-10 09:28 | disposition home or self-care (01) ==
LOC: HO.LAB 09:27
PROVIDERS: PCP Internal Medicine; Visit Provider Internal Medicine
DX: M25.50 Pain in unspecified joint (principal)
CPT/HCPCS: 36415; 80053; 80061; 81003; 82306; 82607; 82746; 83540; 84443; 85025; 85652; 86038; 86039; 86140; 86431; 86617; 86618; 86803

== ENCOUNTER 2023-06-17 11:11 | Outpatient (AMB) | payer OTHER, SELFPAY ==
[2023-06-17 11:29] VITALS: BP 112/72; PULSE 93; TEMP 37.1; O2SAT 97; BMI 34.7
--- NOTE | 2023-06-17 11:29 | AM.OFFWIN_ITS ---
Intake Vital Signs 06/17/23 11:29 Height 5 ft 2 in Weight 190 lb BMI 34.7 BP 112/72 Blood Pressure Location Lt brachial Position Sitting Pulse 93 Pulse Source Pulse Oximeter Temp 98.8 F Temp Source Temporal Artery Scan Pulse Oximetry (%) 97 Oxygen Delivery Method Room Air Intake Visit Reasons: EP cough congestion rib/chest pain (lobby) Intake Note: pt is here today for cough congestion rib and chest pain started tuesday Patient Tobacco Use Status: Never used Tobacco Allergies oxycodone [OXYCODONE] Allergy (Severe, Verified 06/17/23 11:33) ANAPHYLAXIS (Tylenol #3 is o.k.) morphine [MORPHINE] Allergy (Intermediate, Verified 06/17/23 11:33) HIVES/DIFF BREATHING (tylenol #3 is o.k.) Do you need a note to return to daycare/school/sports/work: No HPI HPI Comments History of Present Illness Details 42-year-old female presents today compla ining of continued cough. She was seen 3 days ago put on doxycycline and a short course of steroids and her cough still has not improved. Her viral culture was negative COUNTS INCLUDE 234 BEDS AT [facility] Medical History Vitamin D deficiency Allergic rhinitis Anxiety GERD (gastroesophageal reflux disease) Asthma Obesity (BMI 30-39.9) Intestinal malabsorption following gastrectomy Surgical History History of tubal ligation History of breast biopsy H/O bilateral breast reduction surgery History of cholecystectomy History of appendectomy S/P gastric bypass Hx of laparoscopic gastric banding Hx of appendectomy Hx laparoscopic cholecystectomy Family History Father No problems noted. Mother Arthritis Obesity Brother No problems noted. Brother No problems noted. Sister No problems noted. Sister No problems noted. Sister No problems noted. Son No problems noted. Son No problems noted. Daughter No problems noted. Father No problems noted. 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 [employer] Cognitive needs: No Hearing needs: No Vision needs: Yes Review of Systems Const All systems reviewed & are unremarkable except as noted in HPI and below Eyes Reports no additional complaints ENT Reports nasal congestion Card Reports no additional complaints Resp Reports cough and Reports wheezing GI Reports no additional complaints Reports no additional complaints Aller/Immun Reports wheezing Physical Exam Vital Signs: Last Vital Signs Temp 98.8 F 06/17/23 11:29 Pulse 93 06/17/23 11:29 BP 112/72 06/17/23 11:29 Pulse Ox 97 06/17/23 11:29 Oxygen Delivery Method Room Air 06/17/23 11:29 BMI result Body Mass Index 34.7 Const General: healthy appearing and no acute distress Eyes General: appearance normal, both eyes and all related structures Resp Effort & Inspection: normal respiratory effort Auscultation: wheezes Cardio Rate: regular rate Rhythm: regular rhythm Heart sounds: S1 normal heart sound present and S2 normal heart sound present Results Reviewed Results Reviewed: Chest x-ray results from today were negative this was reviewed with the patient Assessment & Plan Assessment & Plan (1) Cough: Code(s): R05.9 - Cough, unspecified Plan: The patient is going to take a bigger dose of steroids. Continue her antibiotic until completed follow up with her PCP Plan See plan Orders: Orders XR chest 2V Today R05.9 - Cough, unspecified Medications: New prednisone prednisone 5 mg: take 8 tablets (40 mg) on Day 1; 7 tablets (35 mg) on Day 2; then decrease by 1 tablet every day until finished PO 21 ea 0RF Coding Level of Care Code Est Pt Level 3 (07395) Diagnoses Cough R05.9
== END 2023-06-17 16:12 | disposition home or self-care (01) ==
PROVIDERS: PCP Internal Medicine; Visit Provider Physician Assistant Medical
DX: R05.9 Cough, unspecified (principal)
CPT/HCPCS: 99213

== ENCOUNTER 2023-06-17 11:43 | Outpatient (REF) | payer OTHER, SELFPAY ==
--- NOTE | ~2023-06-17 | XR_ITS ---
EXAMINATION: XR CHEST CLINICAL INFORMATION: Cough, unspecified COMPARISON: Chest 02/17/2016 TECHNIQUE: 2 views of the chest were obtained. FINDINGS: No significant abnormality is noted involving the heart, lungs, mediastinum, bony thorax or soft tissues. XR/XR chest 2V IMPRESSION: No acute cardiopulmonary disease.
--- NOTE | ~2023-06-17 | XR_ITS ---
EXAMINATION: XR SHOULDER, LEFT CLINICAL INFORMATION: Pain in left shoulder COMPARISON: None available. TECHNIQUE: AP neutral and scapular Y of the left shoulder. FINDINGS: The bones and soft tissues are normal. No fracture. Glenohumeral and acromioclavicular alignment is anatomic with normal joint space. No abnormal soft tissue calcifications. XR/XR shoulder LT min 2V IMPRESSION: No bony abnormality.
== END 2023-06-17 11:44 | disposition home or self-care (01) ==
LOC: HO.HMGCX 11:43
PROVIDERS: PCP Internal Medicine; Visit Provider Physician Assistant Medical
DX: M25.512 Pain in left shoulder (principal); R05.9 Cough, unspecified
CPT/HCPCS: 71046; 73030

== ENCOUNTER 2023-09-06 12:47 | Outpatient (AMB) | payer OTHER, SELFPAY ==
--- NOTE | 2023-09-06 12:51 | MHC.OFFVIS ---
Vital Signs 09/06/23 12:55 Height 5 ft 2 in Weight 198 lb 10.184 oz BMI 36.3 BP 116/72 Blood Pressure Location Lt brachial Position Sitting Pulse 71 Pulse Source Pulse Oximeter Pulse Oximetry (%) 99 Oxygen Delivery Method Room Air Intake Visit Reasons: Abnormal lab/CONFIRMED Intake Note: Patient presents for abnormal lab. Allergies oxycodone [OXYCODONE] Allergy (Severe, Verified 09/06/23 12:54) ANAPHYLAXIS (Tylenol #3 is o.k.) morphine [MORPHINE] Allergy (Intermediate, Verified 09/06/23 12:54) HIVES/DIFF BREATHING (tylenol #3 is o.k.) Medication List - Last Reconciled 09/06/23 by Irene Zarco MD albuterol sulfate 90 mcg/actuation (Ventolin HFA) 2 puffs inhalation Q4-6H PRN albuterol sulfate 90 mcg/actuation 2 puffs PO QID PRN 30 days cetirizine 10 mg PO DAILY cholecalciferol (vitamin D3) 50 mcg PO DAILY 90 days fluticasone propionate 110 mcg/actuation (Flovent HFA) 2 puffs inhalation BID 30 days hydroxyzine HCl 25 mg PO Q8H PRN montelukast 10 mg PO DAILY 90 days omeprazole 40 mg PO DAILY polyethylene glycol 3350 (Miralax) 17 grams PO DAILY prednisone prednisone 5 mg: take 8 tablets (40 mg) on Day 1; 7 tablets (35 mg) on Day 2; then decrease by 1 tablet every day until finished PO HPI Comments Details: This is a 42-year-old female who presents for evaluation of a positive MAGDALENO in the context of diffuse pain. The condition started last fall when patient started having pain in her feet soon after she started having pain in her hands. As well as her left shoulder. The pain is generally worse in the morning, associated with stiffness that lasts approximately 2 hours. She notices some swelling of her PIPs. Some days she can not put her rings on. She takes plenty of Tylenol, it does not help much, she takes NSAIDs sometimes even though she knows she has not supposed toe given her history of gastric bypass. She has been having a rash on the left side of her neck that does not want to go away, it swells and becomes itchy. She has tried using multiple creams without much improvement. After her gastric bypass surgery she developed some hair loss in the frontal and temporal areas, she has not having any active hair loss now. He has been getting went mouth sores recently. She denies any history of DVT/PE. She had 3 pregnancies and 3 children. She gives a compelling history of SLE in her mother [facility] Medical History Vitamin D deficiency Allergic rhinitis Anxiety GERD (gastroesophageal reflux disease) Asthma Obesity (BMI 30-39.9) Intestinal malabsorption following gastrectomy Surgical History History of tubal ligation History of breast biopsy H/O bilateral breast reduction surgery History of cholecystectomy History of appendectomy S/P gastric bypass Hx of laparoscopic gastric banding Hx of appendectomy Hx laparoscopic cholecystectomy Family History Father No problems noted. Mother Arthritis Obesity Brother No problems noted. Brother No problems noted. Sister No problems noted. Sister No problems noted. Sister No problems noted. Son No problems noted. Son No problems noted. Daughter No problems noted. Father No problems noted. 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 Cognitive needs: No Hearing needs: No Vision needs: Yes Female Reproductive History Menstrual Total pregnancies: 3 Full term: 3 Review of Systems ENT Reports neck pain Musc Reports back pain, Reports arthralgias, Reports joint swelling, Reports neck pain and Reports stiffness Skin/Breast Reports pruritus and Reports rash Physical Exam Vital Signs: Last Vital Signs Pulse 71 09/06/23 12:55 BP 116/72 09/06/23 12:55 Pulse Ox 99 09/06/23 12:55 Oxygen Delivery Method Room Air 09/06/23 12:55 BMI result Body Mass Index 36.3 Const General: cooperative, healthy appearing and comfortable Nutritional Appearance: obese morbidly obese Orientation/consciousness: patient oriented x3 Limitations: no limitations HEENT Head: Yes normocephalic and Yes atraumatic Mouth: moist mucous membranes Resp Effort & Inspection: normal respiratory effort and able to speak in complete sentences Auscultation: clear to auscultation bilaterally Cardio Rate: regular rate Rhythm: regular rhythm Skin Other: Raised oval shaped rash on the anterior aspect of the left side of her neck Neuro General: patient oriented x3 Extrem Other: No wrist tenderness or pain with flexion and extension Bilateral positive MCP squeeze test but no MCP swelling Minimally puffy PIPs diffusely bilaterally Bilateral diffusely tender PIPs No DIP tenderness No elbow pain with full flexion and extension bilaterally Limited range of motion of left shoulder due to pain Positive empty can test on the left Positive infraspinatus test on the left Bilateral ankle tenderness without swelling Bilateral positive MTP squeeze test Normal nailfold capillaroscopy Assessment & Plan Assessment & Plan (1) Positive MAGDALENO (antinuclear antibody): Code(s): R76.8 - Other specified abnormal immunological findings in serum Category: Medical Plan: This is a 42-year-old female who presents for evaluation of a positive MAGDALENO in the context of diffuse joint pain and positive family history of SLE in her mother. Will order comprehensive serology to screen for underlying autoimmune rheumatic disease. Check x-rays of involved joints (2) Tendinopathy of left rotator cuff: Code(s): M67.912 - Unspecified disorder of synovium and tendon, left shoulder Category: Medical Plan: Will discuss further next visit, can consider injection versus PT Plan I spent 47 minutes reviewing patient's chart, evaluating patient, ordering diagnostic workup, counseling patient and documenting in the chart Orders: Orders Anti Extractable Nuclear Ag Today M32.9 - Systemic lupus erythematosus, unspecified Anti DNA DS Antibody Today M32.9 - Systemic lupus erythematosus, unspecified Complement C3 Today M32.9 - Systemic lupus erythematosus, unspecified C Reactive Protein Today M32.9 - Systemic lupus erythematosus, unspecified DNA Double Stranded-Crithidia Today M32.9 - Systemic lupus erythematosus, unspecified Erythrocyte Sedimentation Rate Today M32.9 - Systemic lupus erythematosus, unspecified Sjogren's Antibodies Today M32.9 - Systemic lupus erythematosus, unspecified T Spot TB Today Z11.7 - Encounter for testing for latent tuberculosis infection XR hand wrist LT Today M25.50 - Pain in unspecified joint XR hand wrist RT Today M25.50 - Pain in unspecified joint XR foot RT min 3V Today M25.50 - Pain in unspecified joint Scleroderma 12 Panel Today M34.9 - Systemic sclerosis, unspecified Complement C4 Today M32.9 - Systemic lupus erythematosus, unspecified Protein Creatinine Ratio, Ur Today M32.9 - Systemic lupus erythematosus, unspecified UA w Microscopic Today M32.9 - Systemic lupus erythematosus, unspecified Complete Blood Count Auto Diff Today M32.9 - Systemic lupus erythematosus, unspecified Comprehensive Met. Panel Today M32.9 - Systemic lupus erythematosus, unspecified Hepatitis A,B,C Profile Today Z11.59 - Encounter for screening for other viral diseases XR foot LT min 3V Today M25.50 - Pain in unspecified joint Rheumatoid Factor Today M25.50 - Pain in unspecified joint Cyclic Citrullinated Peptide Today M25.50 - Pain in unspecified joint Coding Level of Care Code New Pt Level 4 (55624) Diagnoses Positive MAGDALENO (antinuclear antibody) R76.8 Tendinopathy of left rotator cuff M67.912
[2023-09-06 12:55] VITALS: BP 116/72; PULSE 71; O2SAT 99; BMI 36.3
== END 2023-09-06 14:30 | disposition home or self-care (01) ==
PROVIDERS: PCP Internal Medicine; Visit Provider Student in an Organized Health Care Education/Training Program
DX: R76.8 Other specified abnormal immunological findings in serum (principal); M67.912 Unspecified disorder of synovium and tendon, left shoulder
CPT/HCPCS: 99204

== ENCOUNTER → 2023-09-06 12:47 | Outpatient (BNVA) | payer OTHER, SELFPAY | PROVIDERS: PCP Internal Medicine; Visit Provider Student in an Organized Health Care Education/Training Program | DX: R76.8 Other specified abnormal immunological findings in serum (principal); M67.912 Unspecified disorder of synovium and tendon, left shoulder | CPT/HCPCS: 99202 ==

== ENCOUNTER 2023-09-09 06:49 | Outpatient (REF) | payer OTHER, SELFPAY ==
[2023-09-09 07:04] LABS: MANUAL DIFF FLAG NO
[2023-09-09 07:37] LABS: Appearance Urine Clear; Color Urine Yellow; Glucose Urine UA Negative (Negative); Leukocyte Esterase Urine Trace (Negative); Nitrite Urine Negative (Negative); UMIC TRIGGER UA YES; Urine Blood Negative (Negative); Urine Ketones Negative (Negative); Urine Protein Negative (Neg-Trace)
[2023-09-09 07:38] LABS: Basophils Absolute Auto 0.1 X10*3/uL (0.0-0.2); Basophils Percent Auto 0.9 % (0-2); Eosinophils Absolute Auto 0.2 X10*3/uL (0.0-0.4); Eosinophils Percent Auto 2.2 % (0-4); Hematocrit 33.5 % (37.0-47.0); Hemoglobin 10.6 g/dl (12.0-16.0); Imm Gran Abs Auto 0.03 X10*3/uL (0.00-0.03); Imm Gran Pct Auto 0.3 % (0.0-0.4); Lymphocytes Absolute Auto 2.7 X10*3/uL (1.2-4.9); Lymphocytes Percent Auto 30.8 % (20-40); Mean Corpuscular HGB Conc 31.6 g/dl (31.0-35.0); Mean Corpuscular Hemoglobin 24.8 pg (27.0-33.0); Mean Corpuscular Volume 78.5 fL (80.0-98.0); Mean Platelet Volume 9.7 fL (9.4-12.3); Monocytes Absolute Auto 0.8 X10*3/uL (0.1-1.2); Monocytes Percent Auto 8.6 % (2-11); Neutrophils Percent Auto 57.2 % (45-73); Platelet Count 505 X10*3/uL (160-400); Red Blood Count 4.27 X10*6/uL (4.20-5.50); Red Cell Distribution Width 13.9 % (11.0-16.0); White Blood Count 8.8 X10*3/uL (4.8-10.8)
[2023-09-09 07:41] LABS: Bacteria Urine None Seen (None Seen); Hyaline Casts Urine 0-2 /LPF (0-2); RBC Urine 0-2 /HPF (0-2); WBC Urine 0-5 /HPF (0-5)
[2023-09-09 07:58] LABS: Creatinine Urine 133.94 mg/dL; Protein/Creatinine Ratio, Ur 0.06 (<0.2); Total Protein Urine Random 8 mg/dL (<12)
[2023-09-09 08:01] LABS: Alanine Aminotransferase 12 U/L (0-31); Albumin Level 3.8 g/dL (3.5-5.0); Alkaline Phosphatase 101 U/L (39-117); Anion Gap 13 (12-20); Aspartate Amino Transferase 17 U/L (5-31); Bilirubin Total 0.3 mg/dL (0.0-1.0); Blood Urea Nitrogen 15 mg/dL (9-16); C Reactive Protein < 0.10 mg/dL (< or = 0.50); Calcium 8.7 mg/dL (8.4-10.2); Carbon Dioxide 22 mmol/L (22-29); Chloride 107 mmol/L (96-108); Estimated Glomerular Filt Rate > 60; Glucose Random 97 mg/dL (60-115); Potassium 3.9 mmol/L (3.3-5.1); Sodium 138 mmol/L (135-145); Total Protein 6.8 g/dL (6.5-8.0)
[2023-09-09 08:02] LABS: Rheumatoid Factor < 13.0 IU/mL (<15.0)
[2023-09-09 08:18] LABS: HBc Num1 0.09 S/CO (0.00-0.79); HBsAGNum1 0.27 S/CO (0.00-0.99); Hepatitis A Antibody IgM 0.14 Index (0-0.79); Hepatitis B Core Antibody Nonreactive (Nonreactive); Hepatitis B Surface Antigen Negative (Negative); ~HepC Num1 0.06 S/CO (0.00-0.79); ~Hepatitis A Antibody IgM Nonreactive (Nonreactive); ~Hepatitis B Surface Antibody REACTIVE (Nonreactive); ~Hepatitis C Antibody Nonreactive (Nonreactive)
[2023-09-09 08:50] LABS: Erythrocyte Sedimentation Rate 15 MM/HR (0-20)
[2023-09-11 20:58] LABS: TS Negative Control Passed; TS Panel A 1; TS Panel B 1; TS Positive Control Passed; TSpotTB Negative (Negative)
[2023-09-12 23:04] LABS: Anti DNA DS Antibody <1 IU/mL; Antibody to SS-A Antigen <1.0 NEG AI (<1.0 NEG); Antibody to SS-B Antigen <1.0 NEG AI (<1.0 NEG); SM/Ribonucleoprotein Ab <1.0 NEG AI (<1.0 NEG); Smith Protein <1.0 NEG AI (<1.0 NEG)
[2023-09-13 05:04] LABS: Complement C3 113 mg/dL (83-193)
[2023-09-13 14:18] LABS: Cyclic Citrullinated Peptide <16 UNITS
[2023-09-16 14:48] LABS: DNAds, Crithidia Antibody Negative (Negative)
[2023-09-16 16:28] LABS: Centromere Protein A Ab <11 SI (<11); Centromere Protein B Ab <11 SI (<11); Fibrillarin Ab <11 SI (<11); PM SCL 100 Ab <11 SI (<11); PM SCL 75 Ab <11 SI (<11); RNA Polymerase III RP11 Ab <11 SI (<11); RNA Polymerase III RP155 Ab <11 SI (<11); SCL-70 Extractable Nuclear Ab <11 SI (<11); Th-To Ab <11 SI (<11); U1 SNRNP RNP 70KD <11 SI (<11); U1 SNRNP RNP A <11 SI (<11); U1 SNRNP RNP C <11 SI (<11)
== END 2023-09-09 06:50 | disposition home or self-care (01) ==
LOC: HO.LAB 06:49
PROVIDERS: PCP Internal Medicine; Visit Provider Student in an Organized Health Care Education/Training Program
DX: Z11.7 Encounter for testing for latent tuberculosis infection (principal); Z11.59 Encounter for screening for other viral diseases; M32.9 Systemic lupus erythematosus, unspecified; M25.50 Pain in unspecified joint; M34.9 Systemic sclerosis, unspecified
CPT/HCPCS: 36415; 80053; 81001; 82570; 84156; 84182; 85025; 85652; 86140; 86160; 86200; 86225; 86235; 86255; 86431; 86481; 86704; 86706; 86709; 86803; 87340

== ENCOUNTER 2023-09-16 10:47 | Outpatient (AMB) | payer OTHER, SELFPAY ==
[2023-09-16 10:50] VITALS: BP 102/70; PULSE 64; O2SAT 100; BMI 36.0
--- NOTE | 2023-09-16 10:50 | A.OFFPC_ITS ---
Vital Signs 09/16/23 10:50 Height 5 ft 2 in Weight 197 lb 0.2 oz BMI 36.0 BP 102/70 Blood Pressure Location Lt brachial Position Sitting Pulse 64 Pulse Source Pulse Oximeter Pulse Oximetry (%) 100 Oxygen Delivery Method Room Air Intake Visit Reasons: PE Intake Note: Patient is here today for a physical. Community Marketing Manager Required: No Allergies oxycodone [OXYCODONE] Allergy (Severe, Verified 09/18/23 14:48) ANAPHYLAXIS (Tylenol #3 is o.k.) morphine [MORPHINE] Allergy (Intermediate, Verified 09/18/23 14:48) HIVES/DIFF BREATHING (tylenol #3 is o.k.) Medication List - Last Reconciled 09/18/23 by Gabriele Means MD albuterol sulfate 90 mcg/actuation (Ventolin HFA) 2 puffs inhalation Q4-6H PRN albuterol sulfate 90 mcg/actuation 2 puffs PO QID PRN 30 days cetirizine 10 mg PO DAILY cholecalciferol (vitamin D3) 50 mcg PO DAILY 90 days fluticasone propionate 110 mcg/actuation (Flovent HFA) 2 puffs inhalation BID 30 days hydroxyzine HCl 25 mg PO Q8H PRN montelukast 10 mg PO DAILY 90 days omeprazole 40 mg PO DAILY polyethylene glycol 3350 (Miralax) 17 grams PO DAILY Tobacco use date assessed: 09/16/23 Dental Screening Dental Screen Date: 06/06/23 Did you have a dental visit in the last 12 months?: Yes Did you have a dental problem in the last 6 months where you did not have access to dental care?: No Was dental information given to patient?: Patient has dentist HPI PE HPI Details Patient comes in today for her annual physical examination States that she currently feels okay She is still experiencing recurrent diffuse myalgia and joint pains - was seen by rheumatology last week and was sent for some labs and work ups to check her out for any potential inflammatory joint disease, given her family Hx of lupus She denies any headaches or dizziness Denies any chest pains, no increased SOB No nausea/vomiting, no abdominal pain No change in bowel habits noted Denies any acute urinary symptoms She had her follow up labs done last week; these apparently included labs ordered by rheumatology recently She continues to follow up with hematology regularly for IV iron infusions every 6 months or so when needed for her anemia She has her annual mammogram done back in 10/2022 and is scheduled for her next mammogram next month She has not had her annual gynecology exam and pap smear done in a few years now [facility] Medical History Vitamin D deficiency Allergic rhinitis Anxiety GERD (gastroesophageal reflux disease) Asthma Obesity (BMI 30-39.9) Intestinal malabsorption following gastrectomy Surgical History History of tubal ligation History of breast biopsy H/O bilateral breast reduction surgery History of cholecystectomy History of appendectomy S/P gastric bypass Hx of laparoscopic gastric banding Hx of appendectomy Hx laparoscopic cholecystectomy Family History Father No problems noted. Mother Arthritis Obesity Brother No problems noted. Brother No problems noted. Sister No problems noted. Sister No problems noted. Sister No problems noted. Son No problems noted. Son No problems noted. Daughter No problems noted. Father No problems noted. 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 1. Little interest or pleasure in doing things: not at all 2. Feeling down, depressed, or hopeless: not at all 3. Trouble falling or staying asleep, or sleeping too much: not at all 4. Feeling tired or having little energy: not at all 5. Poor appetite or overeating: not at all 6. Feeling bad about yourself - or that you are a failure or have let yourself or your family down: not at all 7. Trouble concentrating on things, such as reading the newspaper or watching television: not at all 8. Moving or speaking so slowly that other people could have noticed. Or the opposite - being so fidgety or restless that you have been moving around a lot more than usual: not at all 9. Thoughts that you would be better off or of hurting yourself in some way: not at all Total score: 0 Depression Screening Interpretation: Negative Depression Screening Done: Yes 89104 - PHQ-9 Billing: Yes Source: Developed by Drs. Dom Britt, Ami Pratt, Americo Pastrana and colleagues, with an educational steven from [employer]. Thrive Questionnaire Date Thrive assessed: 06/06/23 I am a: Patient What is your living situation today?: I have a steady place to live Within the past 12 months, did the food you bought not last and you didn't have the money to get more?: Never true Within the past 12 months, did you worry whether your food would run out before you got money to buy more?: Never true Do you have trouble paying for medicines?: No Do you have trouble getting transportation to medical appointments?: No Do you have trouble paying your heating and electricity bill?: No Do you have trouble taking care of your child, family member or friend?: No Do you have trouble with day-to-day activities such as bathing, preparing meals, shopping, managing finances, etc.?: No Are you currently unemployed and looking for a job?: No Are you interested in more education?: No THRIVE Score: 0 AUDIT C Alcohol Use Questionnaire (AUDIT-C) 1. How often do you have a drink containing alcohol?: Never 3. How often do you have six or more drinks on one occasion?: Never Total Score: 0 Score Reviewed/Action Taken: Yes AMA-7 AMB Questionnaire AMA-7 Date AMA - 7 assessed: 06/06/23 Feeling nervous, anxious, or on edge: 0 = Not at all Not being able to stop or control worryin = Not at all Worrying too much about different things: 0 = Not at all Trouble relaxin = Not at all Being so restless that it is hard to sit still: 0 = Not at all Becoming easily annoyed or irritable: 0 = Not at all Feeling afraid as if something awful might happen: 0 = Not at all Total AMA-7 score (0-4 normal; 5-9 mild; 10-14 moderate; 15-21 severe): 0 Source: Developed by Drs. Dom Britt, Ami Pratt, Americo Pastrana and colleagues, with an educational steven from [employer]. Review of Systems Const Denies chills, Reports fatigue, Denies fever(s), Denies headache(s) and Denies malaise Eyes Denies blurry vision, Denies change in vision, Denies irritation and Denies itchy eyes ENT Denies dysphagia, Denies dizziness, Denies otalgia, Denies headache(s), Denies nasal congestion, Reports neck pain (recurrent), Denies odynophagia, Denies sinus pain and Denies sore throat Card Denies chest pain, Denies rapid heart rate, Denies irregular heart rhythm, Denies palpitations and Denies dyspnea Resp Denies chest congestion, Denies cough, Denies dyspnea and Denies wheezing GI Denies abdominal pain, Denies bloating, Denies constipation, Denies dysphagia, Denies heartburn, Denies diarrhea, Denies nausea, Denies odynophagia and Denies vomiting Denies hematuria, Denies urinary frequency, Denies dysuria, Denies urinary incontinence and Denies urinary urgency Musc Reports back pain, Reports myalgias (on and off), Reports arthralgias (involving multiple joints), Reports joint swelling (at times), Denies muscle weakness and Reports neck pain (recurrent) Skin/Breast Denies breast pain, Denies breast mass, Denies change in pigmentation, Denies lesions, Denies rash and Denies unusual bruising Neuro Denies dizziness, Denies headache(s) and Denies paresthesias Psych Denies anxiety and Denies depression Endo Reports fatigue and Denies palpitations Devin/Lymph Denies easy bruising Aller/Immun Denies itchy eyes and Denies wheezing Physical exam (Primary Care) Vital Signs: Last Vital Signs Pulse 64 09/16/23 10:50 BP 102/70 09/16/23 10:50 Pulse Ox 100 09/16/23 10:50 Oxygen Delivery Method Room Air 09/16/23 10:50 BMI result Body Mass Index 36.0 Tobacco/Smoking Status: Tobacco use Status Tobacco use date assessed 09/16/23 09/16/23 10:51 Patient Tobacco Use Status Never used Tobacco 09/16/23 10:51 e-Cigarette/Vaping Use Never Used 09/16/23 10:51 PHQ-9: PHQ-9 Score PHQ-9: Total score 0 09/16/23 11:47 Depression Screening Interpretation: Negative Thrive Assessment: Date of Thrive Assessment Date Thrive assessed 06/06/23 09/16/23 10:51 Const General: no acute distress, alert and awake Orientation/consciousness: patient oriented x3 HENMT Head: Yes normocephalic and Yes atraumatic Ears: external ears normal, TM's normal bilaterally and EAC's normal General nose exam: No nasal discharge present Face and sinus: Yes normal facial exam and Yes sinuses nontender Teeth and gingiva: dentition normal Throat: Yes posterior oropharynx normal and Yes tonsils normal (no TP congestion) Eyes Eyelids: Yes eyelids normal Conjunctivae: conjunctivae normal Pupils: Equal, round and reactive pupils present EOM: EOMs intact bilaterally Neck Neck: Yes no lymphadenopathy Thyroid: Thyroid normal Resp Auscultation: clear to auscultation bilaterally, no rales and no wheezes Cardio Rate: regular rate Rhythm: regular rhythm Heart sounds: no murmurs GI Palpation (GI): Soft to palpation, nontender and No hepatosplenomegaly present Auscultation: normal bowel sounds General: Yes no CVA tenderness Back/Spine/Pelvis Back: no CVA tenderness Cervical Spine: Cervical spine tenderness Thoracic/Lumbar Spine: thoracic spinal tenderness and lumbar spinal tenderness Skin Lesions: no lesions Rashes: no rashes Neuro General: patient oriented x3, moves all extremities, no focal motor deficits and CN's II-XI intact bilaterally Cranial nerves: Yes Equal, round and reactive pupils present Cognition (Neuro): normal cognition Gait exam (Neuro): Normal gait present Extrem General: Yes no clubbing, cyanosis or edema Results Reviewed Results Reviewed: Laboratory Tests 06/10/23 09/09/23 09/09/23 09:52 06:52 07:02 WBC 8.8 Hgb 10.6 L Hct 33.5 L MCV 78.5 L MCH 24.8 L RDW 13.9 Plt Count 505 H ESR 15 Sodium 138 Potassium 3.9 Creatinine 0.74 Estimated GFR > 60 Random Glucose 97 Calcium 8.7 AST 17 ALT 12 Triglycerides 77 Cholesterol 192 LDL Cholesterol, Calc 108 H HDL Cholesterol 69 Ur Specific [place] 1.020 Urine Protein Negative Urine Glucose (UA) Negative Urine Blood Negative Urine Nitrite Negative Ur Leukocyte Esterase Trace H Protein/Creatinin Ratio 0.06 Rheumatoid Factor < 13.0 Cycl Citrul Peptide IgG <16 MAGDALENO Screen POSITIVE A SS-A/Ro Antibody <1.0 NEG SS-B/La Antibody <1.0 NEG Assessment and Plan Assessment & Plan (1) Annual physical exam: Code(s): Z00.00 - Encounter for general adult medical examination without abnormal findings Plan: Results of her labs done last week reviewed and discussed with patient She is scheduled for her annual mammogram next month She has not had her annual gynecology exam and pap smear done in a few years and will need to get these updated RUDDY (2) Iron deficiency anemia: Code(s): D50.9 - Iron deficiency anemia, unspecified Qualifiers: Iron deficiency anemia type: unspecified iron deficiency Qualified Code(s): D50.9 - Iron deficiency anemia, unspecified Plan: She is anemic again on her recent labs, with her H/H at 10.6/33.5 (H/H was normal at 12.3/39.1 back in June 2023) She was getting IV iron infusions in the past but has not had infusions lately Follow up with hematology as scheduled (3) Asthma: Code(s): J45.909 - Unspecified asthma, uncomplicated Qualifiers: Asthma complication type: uncomplicated Asthma persistence: intermittent Asthma severity: mild Qualified Code(s): J45.20 - Mild intermittent asthma, uncomplicated Plan: Her asthma recently appears stable Continue Flovent HFA 110 mcg 2 inhalations BID and Albuterol HFA 1 to 2 inhalations Q 6 hours PRN (4) Arthralgia: Code(s): M25.50 - Pain in unspecified joint Qualifiers: Joint pain location: unspecified Qualified Code(s): M25.50 - Pain in unspecified joint Plan: Involving multiple joints She has been concerned about her own risks for lupus or other inflammatory joint disease as her mother was diagnosed with lupus and has been struggling with it for years She was seen by rheumatology last week and sent for labs to help screen for any underlying autoimmune disease - these are all still pending at this time Follow up with rheumatology as scheduled (5) GERD (gastroesophageal reflux disease): Code(s): K21.9 - Gastro-esophageal reflux disease without esophagitis Qualifiers: Esophagitis presence: without esophagitis Qualified Code(s): K21.9 - Gastro-esophageal reflux disease without esophagitis Plan: Dietary restrictions reinforced Continue Omeprazole 40 mg QD (6) Constipation: Code(s): K59.00 - Constipation, unspecified Qualifiers: Constipation type: unspecified constipation type Qualified Code(s): K59 .00 - Constipation, unspecified Plan: Encouraged increased oral fluids and dietary fiber She has been prescribed Miralax and Senna Lax by GI previously but patient has not yet really started on these - was reportedly told by pharmacy that her insurance will not cover her Rx as they are available OTC Follow up with GI as scheduled (7) Vitamin D deficiency: Code(s): E55.9 - Vitamin D deficiency, unspecified Plan: She is advised that her Vitamin D level was very low on her recent labs and she should continue taking her Vitamin D3 2000 units QD Will recheck her labs in 6 months for follow up (8) Allergic rhinitis: Code(s): J30.9 - Allergic rhinitis, unspecified Qualifiers: Allergic rhinitis seasonality: seasonal Allergic rhinitis trigger: pollen Qualified Code(s): J30.1 - Allergic rhinitis due to pollen Plan: Continue Cetirizine 10 mg once a day as needed, Montelukast 10 mg once a day and Fluticasone nasal spray 50 mcg 1 spray into each nostril once a day (9) Anxiety: Code(s): F41.9 - Anxiety disorder, unspecified Plan: Continue Hydroxyzine 25 mg every 8 hours as needed She was also on Escitalopram 10 mg QD in the past but she admitted to stopping it on her own a while back as she felt that it was not helping much (10) Obesity (BMI 30-39.9): Comment: S/P gastric bypass surgery 02/2016 Code(s): E66.9 - Obesity, unspecified Plan: Reinforced diet/exercise as tolerated/lose weight Used to see Weight Management but states that she has not been back to see them in a few years and prefers not to return there (11) Cervical cancer screening: Code(s): Z12.4 - Encounter for screening for malignant neoplasm of cervix Plan: Will refer her to Gynecology for her annual pap smear and gynecology exam Plan Follow up in 6 months Orders: Orders Vitamin D 25-OH Total 6 Months E55.9 - Vitamin D deficiency, unspecified Lipid Panel 6 Months E78.00 - Pure hypercholesterolemia, unspecified Comprehensive [place]. Panel Fast 6 Months E78.00 - Pure hypercholesterolemia, unspecified Complete Blood Count Auto Diff 6 Months D64.9 - Anemia, unspecified UA CC w/rflx Micro + Cult 6 Months R30.0 - Dysuria Referrals INTERNAL CONTROL SPECIALIST Referral Z12.4 - Encounter for screening for malignant neoplasm of cervix Coding Level of Care Code Est Pt Prev Care 40-64y(07060) Diagnoses Annual physical exam Z00.00 Iron deficiency anemia, unspecified iron deficiency anemia type D50.9 Iron deficiency anemia type: unspecified iron deficiency Mild intermittent asthma without complication J45.20 Asthma complication type: uncomplicated Asthma persistence: intermittent Asthma severity: mild Arthralgia, unspecified joint M25.50 Joint pain location: unspecified Gastroesophageal reflux disease without esophagitis K21.9 Esophagitis presence: without esophagitis Constipation, unspecified constipation type K59.00 Constipation type: unspecified constipation type Vitamin D deficiency E55.9 Seasonal allergic rhinitis due to pollen J30.1 Allergic rhinitis seasonality: seasonal Allergic rhinitis trigger: pollen Anxiety F41.9 Obesity (BMI 30-39.9) E66.9 Cervical cancer screening Z12.4
== END 2023-09-16 11:55 | disposition home or self-care (01) ==
PROVIDERS: PCP Internal Medicine; Visit Provider Internal Medicine
DX: Z00.00 Encounter for general adult medical examination without abnormal findings (principal); D50.9 Iron deficiency anemia, unspecified; J45.20 Mild intermittent asthma, uncomplicated; Z90.3 Acquired absence of stomach [part of]; M25.50 Pain in unspecified joint; K21.9 Gastro-esophageal reflux disease without esophagitis; K59.00 Constipation, unspecified; E55.9 Vitamin D deficiency, unspecified; J30.1 Allergic rhinitis due to pollen; F41.9 Anxiety disorder, unspecified; E66.9 Obesity, unspecified; Z12.4 Encounter for screening for malignant neoplasm of cervix
CPT/HCPCS: 99396

== ENCOUNTER 2023-10-12 15:46 | Outpatient (AMB) | payer OTHER, SELFPAY ==
[2023-10-12 16:02] VITALS: BP 124/70; PULSE 73; O2SAT 100; BMI 35.7
--- NOTE | 2023-10-12 16:02 | MHC.OFFVIS ---
Vital Signs 10/12/23 16:02 Height 5 ft 2 in Weight 195 lb 1.745 oz BMI 35.7 BP 124/70 Blood Pressure Location Lt brachial Position Sitting Pulse 73 Pulse Source Pulse Oximeter Pulse Oximetry (%) 100 Oxygen Delivery Method Room Air Intake Visit Reasons: +MAGDALENO Intake Note: Patient is here for positive MAGDALENO follow up. Allergies oxycodone [OXYCODONE] Allergy (Severe, Verified 10/12/23 16:05) ANAPHYLAXIS (Tylenol #3 is o.k.) morphine [MORPHINE] Allergy (Intermediate, Verified 10/12/23 16:05) HIVES/DIFF BREATHING (tylenol #3 is o.k.) Medication List - Last Reconciled 10/12/23 by Irene Zarco MD albuterol sulfate 90 mcg/actuation (Ventolin HFA) 2 puffs inhalation Q4-6H PRN albuterol sulfate 90 mcg/actuation 2 puffs PO QID PRN 30 days cetirizine 10 mg PO DAILY cholecalciferol (vitamin D3) 50 mcg PO DAILY 90 days fluticasone propionate 110 mcg/actuation (Flovent HFA) 2 puffs inhalation BID 30 days hydroxyzine HCl 25 mg PO Q8H PRN montelukast 10 mg PO DAILY 90 days omeprazole 40 mg PO DAILY polyethylene glycol 3350 (Miralax) 17 grams PO DAILY HPI Comments Details: Patient returns for follow-up after completion of her diagnostic workup. She continues to feel about the same, her main complaint is her left shoulder pain, stiffness and limitation of range of motion Initial history: This is a 42-year-old female who presents for evaluation of a positive MAGDALENO in the context of diffuse pain. The condition started last fall when patient started having pain in her feet soon after she started having pain in her hands. As well as her left shoulder. The pain is generally worse in the morning, associated with stiffness that lasts approximately 2 hours. She notices some swelling of her PIPs. Some days she can not put her rings on. She takes plenty of Tylenol, it does not help much, she takes NSAIDs sometimes even though she knows she has not supposed toe given her history of gastric bypass. She has been having a rash on the left side of her neck that does not want to go away, it swells and becomes itchy. She has tried using multiple creams without much improvement. After her gastric bypass surgery she developed some hair loss in the frontal and temporal areas, she has not having any active hair loss now. He has been getting went mouth sores recently. She denies any history of DVT/PE. She had 3 pregnancies and 3 children. She gives a compelling history of SLE in her mother [facility] Medical History Vitamin D deficiency Allergic rhinitis Anxiety GERD (gastroesophageal reflux disease) Asthma Obesity (BMI 30-39.9) Intestinal malabsorption following gastrectomy Surgical History History of tubal ligation History of breast biopsy H/O bilateral breast reduction surgery History of cholecystectomy History of appendectomy S/P gastric bypass Hx of laparoscopic gastric banding Hx of appendectomy Hx laparoscopic cholecystectomy Family History Father No problems noted. Mother Arthritis Obesity Brother No problems noted. Brother No problems noted. Sister No problems noted. Sister No problems noted. Sister No problems noted. Son No problems noted. Son No problems noted. Daughter No problems noted. Father No problems noted. 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 Cognitive needs: No Hearing needs: No Vision needs: Yes Female Reproductive History Menstrual Total pregnancies: 3 Full term: 3 Review of Systems Musc Reports arthralgias, Reports limited range of motion and Reports stiffness Physical Exam Vital Signs: Last Vital Signs Pulse 73 10/12/23 16:02 BP 124/70 10/12/23 16:02 Pulse Ox 100 10/12/23 16:02 Oxygen Delivery Method Room Air 10/12/23 16:02 BMI result Body Mass Index 35.7 Const General: cooperative, healthy appearing and comfortable Nutritional Appearance: obese morbidly obese Orientation/consciousness: patient oriented x3 Limitations: no limitations HEENT Head: Yes normocephalic and Yes atraumatic Mouth: moist mucous membranes Resp Effort & Inspection: normal respiratory effort and able to speak in complete sentences Auscultation: clear to auscultation bilaterally Cardio Rate: regular rate Rhythm: regular rhythm Skin Other: Raised oval shaped rash on the anterior aspect of the left side of her neck Neuro General: patient oriented x3 Extrem Other: No wrist tenderness or pain with flexion and extension Bilateral positive MCP squeeze test but no MCP swelling Bilateral diffusely tender PIPs No DIP tenderness No elbow pain with full flexion and extension bilaterally Limited range of motion of left shoulder due to pain Positive empty can test on the left Positive infraspinatus test on the left Bilateral ankle tenderness without swelling Normal nailfold capillaroscopy Office Procedures Joint Injection/Aspiration Joint Injection/Aspiration Primary Site: left shoulder Prep: site was prepped using sterile technique and ethochloride spray was applied Injected: 40 mg of, Kenalog, with 1 mL of and 1% plain lidocaine Approach Used: posterolateral Procedure: The patient tolerated the procedure well Coding Details: With the patient's consent the left shoulder was prepped with ChloraPrep and alcohol. Under a topical ethyl chloride spray the left subacromial space was injected with 40 mg of triamcinolone and 1 cc of 1% lidocaine. The patient tolerated the procedure without any acute adverse effects. 08910 - Large joint Procedure code (CPT) selection complete Assessment & Plan Assessment & Plan (1) Positive MAGDALENO (antinuclear antibody): Code(s): R76.8 - Other specified abnormal immunological findings in serum Category: Medical Plan: This is a 42-year-old female who presents for evaluation of a positive MAGDALENO in the context of diffuse joint pain and positive family history of SLE in her mother. Upon evaluation there is no active synovitis, no suspicious rashes for underlying autoimmune rheumatic disease. Comprehensive top serology is negative with normal inflammatory markers. Patient reassured that at this time she does not have active autoimmune rheumatic disease. Discussed symptoms and signs that are suggestive of an autoimmune rheumatic disease. Follow-up in 6 months (2) Tendinopathy of left rotator cuff: Code(s): M67.912 - Unspecified disorder of synovium and tendon, left shoulder Category: Medical Plan: With patient's consent, left shoulder was injected with Kenalog today. Referred patient to PT Plan I spent 27 minutes reviewing patient's chart, evaluating patient, placing orders, counseling patient and documenting in the chart Orders: Orders AMB Joint Injection/Aspiration Today M67.912 - Unspecified disorder of synovium and tendon, left shoulder PT Evaluation and Treatment Today M6 - Unspecified disorder of synovium and tendon, left shoulder Coding Level of Care Code Est Pt Level 4 (53359) Diagnoses Positive MAGDALENO (antinuclear antibody) R76.8 Tendinopathy of left rotator cuff M67. CPT Codes Coding - 36845 Large joint: 88694 - Large joint ([id number])
== END 2023-10-12 16:31 | disposition home or self-care (01) ==
PROVIDERS: PCP Internal Medicine; Visit Provider Student in an Organized Health Care Education/Training Program
DX: R76.8 Other specified abnormal immunological findings in serum (principal); M67.912 Unspecified disorder of synovium and tendon, left shoulder
CPT/HCPCS: 20610; 99213

== ENCOUNTER → 2023-10-12 15:46 | Outpatient (BNVA) | payer OTHER, SELFPAY | PROVIDERS: PCP Internal Medicine; Visit Provider Student in an Organized Health Care Education/Training Program | DX: M67.912 Unspecified disorder of synovium and tendon, left shoulder (principal); R76.8 Other specified abnormal immunological findings in serum | CPT/HCPCS: 20610; 99212 ==

== ENCOUNTER 2023-10-24 13:00 | Outpatient (RCR) | payer OTHER, SELFPAY ==
[2023-10-03 13:08] VITALS: BP 119/46; PULSE 62; RESP 14; TEMP 36.4; O2SAT 100
[2023-10-03] MEDS: Iron Sucrose Complex 200 MG in 0.9 % Sodium Chloride 100 ML 440 MG IV (13:18)
[2023-10-03] MEDS: 0.9 % Sodium Chloride Flush 10 ML SYRINGE 5 ML IVFLUSH (13:45)
[2023-10-10 13:05] VITALS: BP 115/72; PULSE 74; RESP 14; TEMP 36.8; O2SAT 98
[2023-10-10] MEDS: Iron Sucrose Complex 200 MG in 0.9 % Sodium Chloride 100 ML 440 MG IV (13:37)
[2023-10-10] MEDS: 0.9 % Sodium Chloride Flush 10 ML SYRINGE 5 ML IVFLUSH (13:59)
[2023-10-17 12:55] VITALS: BP 119/66; PULSE 55; RESP 14; TEMP 36.1; O2SAT 100
[2023-10-17] MEDS: Iron Sucrose Complex 200 MG in 0.9 % Sodium Chloride 100 ML 440 MG IV (13:10)
[2023-10-17] MEDS: 0.9 % Sodium Chloride Flush 10 ML SYRINGE 5 ML IVFLUSH (13:31)
[2023-10-24 12:55] VITALS: BP 117/72; PULSE 91; RESP 18; TEMP 36.5; O2SAT 100
[2023-10-24] MEDS: Iron Sucrose Complex 200 MG in 0.9 % Sodium Chloride 100 ML 440 MG IV (13:23)
[2023-10-24] MEDS: 0.9 % Sodium Chloride Flush 10 ML SYRINGE 5 ML IVFLUSH (14:01)
== END 2023-10-24 14:10 | disposition home or self-care (01) ==
LOC: HO.INF 13:00
PROVIDERS: Visit Provider Internal Medicine
DX: D50.9 Iron deficiency anemia, unspecified (principal)
CPT/HCPCS: 96365; 96374; J1756

== ENCOUNTER → 2023-11-15 10:06 | Outpatient (RCR) | payer OTHER, SELFPAY ==
[2020-10-08 08:15] VITALS: BP 108/72; PULSE 68; RESP 14; TEMP 36.2; O2SAT 99; BMI 34.9
[2020-10-08 08:39] LABS: MANUAL DIFF FLAG NO
[2020-10-08 08:52] LABS: Basophils Absolute Auto 0.1 X10*3/uL (0.0-0.2); Basophils Percent Auto 0.7 % (0-2); Eosinophils Absolute Auto 0.1 X10*3/uL (0.0-0.4); Eosinophils Percent Auto 1.2 % (0-4); Hematocrit 40.3 % (37-47); Hemoglobin 12.8 g/dl (12.0-16.0); Imm Gran Abs Auto 0.02 X10*3/uL (0.00-0.03); Imm Gran Pct Auto 0.2 % (0.0-0.4); Lymphocytes Absolute Auto 2.3 X10*3/uL (1.2-4.9); Lymphocytes Percent Auto 26.1 % (20-40); Mean Corpuscular HGB Conc 31.8 g/dl (31.0-35.0); Mean Corpuscular Hemoglobin 27.4 pg (27.0-33.0); Mean Corpuscular Volume 86.1 fL (80-98); Mean Platelet Volume 9.7 fL (9.4-12.3); Monocytes Absolute Auto 0.7 X10*3/uL (0.1-1.2); Monocytes Percent Auto 8.4 % (2-11); Neutrophils Absolute Auto 5.5 X10*3/uL (2.0-8.3); Neutrophils Percent Auto 63.4 % (45-73); Platelet Count 448 X10*3/uL (160-400); Red Blood Count 4.68 X10*6/uL (4.20-5.50); Red Cell Distribution Width 15.8 % (11.0-16.0); White Blood Count 8.7 X10*3/uL (4.8-10.8)
[2020-10-08 09:12] LABS: Iron 43 mcg/dL (30-160); Percent Iron Saturation 13 % (15-50); Total Iron Binding Capacity 337 mcg/dL (228-428); Unsaturated Iron Binding 294 ug/dL
--- NOTE | 2020-10-08 14:00 | MHC.HEMONCMA ---
Patient came in for a follow up today, states that she is not feeling better at all. States that she is feeling very weak, tired, having alot of headaches, and blurred vision. Clinical summary was reviewed and updatd. Patient had labs and will return in 6 months for a follow up.
== END | disposition home or self-care (01) ==
LOC: HO.ONC 10-08 07:51
PROVIDERS: PCP Internal Medicine; Visit Provider Internal Medicine
DX: D50.9 Iron deficiency anemia, unspecified (principal)
CPT/HCPCS: 36415; 83540; 85025

== ENCOUNTER 2023-12-05 14:00 | Outpatient (RCR) | payer OTHER, SELFPAY ==
--- NOTE | 2023-11-21 09:45 | MHC.PT.EP ---
[facility] [place] Office [place] Office [place] Office [address] Mitchell Ayala [address] [phone] F: [phone] F: [phone] F: [phone] F: [phone] Physical Therapy Plan of Care Date of Evaluation: 11/21/23 Date of Surgery: Diagnosis: This is a 42 yo female presenting to skilled PT with a script for tendinopathy of L rotator cuff. Assessment: This is a 42 yo female presenting to skilled PT with a script for tendinopathy of L rotator cuff. Patient reporting ongoing L shoulder pain for about 6 months now, insidiously (thinks she may have rolled on it wrong in bed). She had a cortisone injection which was in October and was helpful. Pain is located at the upper trap and radiates into the anterior and lateral arm. Pain increases when she lifts her arm, laying on the L, UB ADL's. No pain at rest. Pain is described as achy. She is RHD. Denies numbness and tingling. She uses heat and tylenol for pain relief. Assessment reveals pain that ranges from up to a 5/10 at the worst. Patient demos decreased L shoulder and cervical ROM, strength of L shoulder and scapular stabilizers, TTP at anterior, lateral GHJ joint line and triceps, UT and impaired posture with forward head and rounded shoulders. Based on functional limitations, impaired QOL and pain tolerance patient is a good candidate for skilled PT 2x/wk for 4wks. Frequency and Duration: The patient will be seen 2x/wk for 4wks Short Term Goals: (In 2 weeks) Demo I with HEP Improve shoulder AROM by at least 10 degs Demo proper scapular recruitment with appropriate shoulder strengthening exercises [facility] Goals: (in 4 wks) Improve shoulder nonpainful AROM to almost near equal B Demo at least 1 grade improvement in MMT for shoulder Improve SPADI by at least 10 points Improve overall functional QOL by at least 50% Treatment Plan: Modalities to reduce pain, spasms and effusion. Manual therapy to restore motion and function. Therapeutic exercise to improve strength and flexibility. Neuromuscular re-education for posture and balance. Therapeutic activities to return to functional activities of daily living. Electronically signed by: Imani Rankin PT Please sign and return to therapist. Thank you for your referral.
--- NOTE | 2023-12-21 09:43 | MHC.PT.DC ---
[facility] [place] Office [place] Office [place] Office [address] [phone] F: [phone] F: [phone] F: [phone] F: [phone] Physical Therapy Discharge Report Diagnosis: This is a 42 yo female presenting to skilled PT with a script for tendinopathy of L rotator cuff. Date of Surgery: Date of Evaluation: 11/21/23 Date of Discharge: Treatments to Date: 2 Cancellations to Date: 0 No Shows to Date: 0 Discharge Status: Discharge Summary: Patient with poor compliance to PT appointments. DC due to multiple no shows. No other appointments are scheduled. DC to HEP Electronically signed by: Imani Rankin PT Please sign and return to therapist. Thank you for your referral.
--- NOTE | 2023-12-21 09:48 | MHC.PT.DC ---
[facility] [place] Office [place] Office [place] Office [address] Ayala [address] [phone] F: [phone] F: [phone] F: [phone] F: [phone] Physical Therapy Discharge Report Diagnosis: This is a 42 yo female presenting to skilled PT with a script for tendinopathy of L rotator cuff. Date of Surgery: Date of Evaluation: 11/21/23 Date of Discharge: Treatments to Date: 2 Cancellations to Date: 0 No Shows to Date: 0 Discharge Status: Discharge Summary: Patient with poor compliance to PT appointments. DC due to multiple no shows. No other appointments are scheduled. DC to HEP Electronically signed by: Imani Rankin PT Please sign and return to therapist. Thank you for your referral.
== END 2023-12-21 09:48 | disposition home or self-care (01) ==
LOC: HO.PTCHIC 14:00
PROVIDERS: PCP Internal Medicine; Visit Provider Student in an Organized Health Care Education/Training Program
DX: M67.912 Unspecified disorder of synovium and tendon, left shoulder (principal)
CPT/HCPCS: 97110; 97162

== ENCOUNTER 2024-05-21 09:00 | Outpatient (RCR) | payer OTHER, SELFPAY ==
[2024-05-04 12:48] VITALS: BP 143/93; PULSE 110; RESP 18; TEMP 36.9
[2024-05-04] MEDS: Iron Sucrose Complex 200 MG/10 ML VIAL IVPUSH (13:03)
[2024-05-07 13:07] VITALS: BP 139/88; PULSE 88; RESP 14; TEMP 36.6; O2SAT 99
[2024-05-07] MEDS: Iron Sucrose Complex 200 MG/10 ML VIAL IVPUSH (13:29)
[2024-05-14 09:07] VITALS: BP 128/75; PULSE 72; RESP 16; TEMP 36.6; O2SAT 100
[2024-05-14] MEDS: Iron Sucrose Complex 200 MG/10 ML VIAL IVPUSH (09:13)
[2024-05-21 09:17] LABS: Hematocrit 35.7 % (37.0-47.0); Hemoglobin 11.2 g/dl (12.0-16.0); Mean Corpuscular HGB Conc 31.4 g/dl (31.0-35.0); Mean Corpuscular Hemoglobin 26.4 pg (27.0-33.0); Mean Platelet Volume 9.6 fL (9.4-12.3); Platelet Count 520 X10*3/uL (160-400); Red Blood Count 4.25 X10*6/uL (4.20-5.50); Red Cell Distribution Width 17.3 % (11.0-16.0); White Blood Count 9.2 X10*3/uL (4.8-10.8)
[2024-05-21 09:22] VITALS: BP 122/77; PULSE 83; RESP 16; TEMP 36.5; O2SAT 99
[2024-05-21] MEDS: Iron Sucrose Complex 200 MG/10 ML VIAL IVPUSH (09:32)
[2024-05-21] MEDS: 0.9 % Sodium Chloride Flush 10 ML SYRINGE 5 ML IVFLUSH (09:33)
--- NOTE | 2024-05-21 09:37 | HO.INF ---
CRAMPING DURING IVP OF VENOFER. PLAN TO NOTIFY PHARMACY.
[2024-05-21 09:49] LABS: Ferritin 140 ng/mL (10-250)
== END 2024-05-21 15:12 | disposition home or self-care (01) ==
LOC: HO.INF 09:00
PROVIDERS: Visit Provider Nurse Practitioner Family
DX: D50.9 Iron deficiency anemia, unspecified (principal)
CPT/HCPCS: 36415; 82728; 85027; 96374; J1756

== ENCOUNTER 2024-06-18 07:30 | Outpatient (RCR) | payer OTHER, SELFPAY ==
[2024-06-11 12:47] VITALS: BP 117/73; PULSE 70; RESP 16; TEMP 36.1; O2SAT 100
[2024-06-11] MEDS: Iron Sucrose Complex 200 MG/10 ML VIAL IVPUSH (12:57)
[2024-06-18 07:26] VITALS: BP 124/78; PULSE 73; RESP 16; TEMP 36.6; O2SAT 100
[2024-06-18] MEDS: Iron Sucrose Complex 200 MG in 0.9 % Sodium Chloride 100 ML 440 MG IV (07:34)
== END 2024-06-18 07:54 | disposition home or self-care (01) ==
LOC: HO.INF 07:30
PROVIDERS: Visit Provider Nurse Practitioner Family
DX: D64.9 Anemia, unspecified (principal)
CPT/HCPCS: 96365; 96374; J1756

== ENCOUNTER 2024-07-03 13:05 | Outpatient (AMB) | payer OTHER, SELFPAY ==
[2024-07-03 13:16] VITALS: BP 120/82; PULSE 97; O2SAT 97; BMI 35.7
--- NOTE | 2024-07-03 13:16 | A.OFFPC_ITS ---
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 Accompanied by: Self / Same As Patient Allergies oxycodone [OXYCODONE] Allergy (Severe, Verified 07/03/24 13:40) ANAPHYLAXIS (Tylenol #3 is o.k.) morphine [MORPHINE] Allergy (Intermediate, Verified 07/03/24 13:40) HIVES/DIFF BREATHING (tylenol #3 is o.k.) Medication List - Last Reconciled 07/03/24 by Gabriele Means MD albuterol sulfate 90 mcg/actuation (Ventolin HFA) 2 puffs inhalation Q4-6H PRN albuterol sulfate 90 mcg/actuation 2 puffs PO QID PRN 30 days cetirizine 10 mg PO DAILY cholecalciferol (vitamin D3) 50 mcg PO DAILY 90 days fluticasone propionate 110 mcg/actuation (Flovent HFA) 2 puffs inhalation BID 30 days hydroxyzine HCl 25 mg PO Q8H PRN montelukast 10 mg PO DAILY 90 days omeprazole 40 mg PO DAILY polyethylene glycol 3350 (Miralax) 17 grams PO DAILY Tobacco use date assessed: 07/03/24 Dental Screening Dental Screen Date: 07/03/24 Did you have a dental visit in the last 12 months?: Yes Did you have a dental problem in the last 6 months where you did not have access to dental care?: No Was dental information given to patient?: Patient has dentist HPI anemia, GERD HPI Details Patient comes in today for her follow up visit States that she feels okay She denies any headaches or dizziness Denies any chest pains, no SOB No nausea/vomiting, no abdominal pain No change in bowel habits noted She continues to follow up with hematology regularly for IV iron infusions every 6 months or so when needed for her anemia She was also evaluated by rheumatology a few months ago and so far, all of her work ups done have revealed NO evidence of any inflammatory joint disease or CTDs She is also scheduled to see weight management for follow up in a couple of weeks and plans to discuss with them about possibly being started on a GLP-1 to help her lose weight, as she states that her weight has been stagnant for the past few years now despite her gastric bypass surgery several years ago [facility] Medical History Vitamin D deficiency Allergic rhinitis Anxiety GERD (gastroesophageal reflux disease) Asthma Obesity (BMI 30-39.9) Intestinal malabsorption following gastrectomy Surgical History History of tubal ligation History of breast biopsy H/O bilateral breast reduction surgery History of cholecystectomy History of appendectomy S/P gastric bypass Hx of laparoscopic gastric banding Hx of appendectomy Hx laparoscopic cholecystectomy Family History Father No problems noted. Mother Arthritis Obesity Brother No problems noted. Brother No problems noted. Sister No problems noted. Sister No problems noted. Sister No problems noted. Son No problems noted. Son No problems noted. Daughter No problems noted. Father No problems noted. 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 1. Little interest or pleasure in doing things: not at all 2. Feeling down, depressed, or hopeless: not at all 3. Trouble falling or staying asleep, or sleeping too much: not at all 4. Feeling tired or having little energy: not at all 5. Poor appetite or overeating: not at all 6. Feeling bad about yourself - or that you are a failure or have let yourself or your family down: not at all 7. Trouble concentrating on things, such as reading the newspaper or watching television: not at all 8. Moving or speaking so slowly that other people could have noticed. Or the opposite - being so fidgety or restless that you have been moving around a lot more than usual: not at all 9. Thoughts that you would be better off or of hurting yourself in some way: not at all Total score: 0 Depression Screening Interpretation: Negative Depression Screening Done: Yes 31104 - PHQ-9 Billing: Yes Source: Developed by Drs. Dom Britt, Ami Pratt, Americo Pastrana and colleagues, with an educational steven from [employer]. Thrive Questionnaire Date Thrive assessed: 07/03/24 I am a: Patient What is your living situation today?: I have a steady place to live Within the past 12 months, did the food you bought not last and you didn't have the money to get more?: Never true Within the past 12 months, did you worry whether your food would run out before you got money to buy more?: Never true Do you have trouble paying for medicines?: No Do you have trouble getting transportation to medical appointments?: No Do you have trouble paying your heating and electricity bill?: No Do you have trouble taking care of your child, family member or friend?: No Do you have trouble with day-to-day activities such as bathing, preparing meals, shopping, managing finances, etc.?: No Are you currently unemployed and looking for a job?: No Are you interested in more education?: No Please select the resources that you would like help with: None Currently or been in a relationship where the following occur: No concerns reported THRIVE Score: 0 AUDIT C Alcohol Use Questionnaire (AUDIT-C) 1. How often do you have a drink containing alcohol?: Never 3. How often do you have six or more drinks on one occasion?: Never Total Score: 0 Score Reviewed/Action Taken: Yes AMA-7 AMB Questionnaire AMA-7 Date AMA - 7 assessed: 07/03/24 Feeling nervous, anxious, or on edge: 0 = Not at all Not being able to stop or control worryin = Not at all Worrying too much about different things: 0 = Not at all Trouble relaxin = Not at all Being so restless that it is hard to sit still: 0 = Not at all Becoming easily annoyed or irritable: 0 = Not at all Feeling afraid as if something awful might happen: 0 = Not at all Total AMA-7 score (0-4 normal; 5-9 mild; 10-14 moderate; 15-21 severe): 0 Source: Developed by Drs. Dom Britt, Ami Pratt, Americo Pastrana and colleagues, with an educational steven from [employer]. Review of Systems Const Denies chills, Reports fatigue, Denies fever(s) and Denies headache(s) ENT Denies dysphagia, Denies dizziness, Denies otalgia, Denies headache(s), Reports neck pain (recurrent), Denies odynophagia and Denies sore throat Card Denies chest pain, Denies irregular heart rhythm, Denies palpitations and Denies dyspnea Resp Denies chest congestion, Denies cough and Denies dyspnea GI Denies abdominal pain, Denies constipation, Denies dysphagia, Denies heartburn, Denies diarrhea, Denies nausea, Denies odynophagia and Denies vomiting Denies urinary frequency, Denies dysuria and Denies urinary urgency Musc Reports back pain, Reports myalgias (on and off), Reports arthralgias (involving multiple joints) and Reports neck pain (recurrent) Skin/Breast Denies rash Neuro Denies dizziness, Denies headache(s) and Denies paresthesias Psych Denies anxiety and Denies depression Endo Reports fatigue and Denies palpitations Devin/Lymph Denies easy bruising Physical exam (Primary Care) Vital Signs: Last Vital Signs Pulse 97 07/03/24 13:16 BP 120/82 07/03/24 13:16 Pulse Ox 97 07/03/24 13:16 Oxygen Delivery Method Room Air 07/03/24 13:16 BMI result Body Mass Index 35.7 Tobacco/Smoking Status: Tobacco use Status Tobacco use date assessed 07/03/24 07/03/24 13:22 Patient Tobacco Use Status Never used Tobacco 07/03/24 13:22 e-Cigarette/Vaping Use Never Used 07/03/24 13:22 PHQ-9: PHQ-9 Score PHQ-9: Total score 0 07/03/24 13:23 Depression Screening Interpretation: Negative Thrive Assessment: Date of Thrive Assessment Date Thrive assessed 07/03/24 07/03/24 13:22 Currently or been in a relationship where the following occur: No concerns reported Const General: no acute distress and alert HENMT Ears: TM's normal bilaterally and EAC's normal Throat: Yes posterior oropharynx normal and Yes tonsils normal (no TP congestion) Neck Neck: Yes no lymphadenopathy Thyroid: Thyroid normal Resp Auscultation: clear to auscultation bilaterally, no rales and no wheezes Cardio Rate: regular rate Rhythm: regular rhythm Heart sounds: no murmurs GI Palpation (GI): Soft to palpation and nontender Auscultation: normal bowel sounds General: Yes no CVA tenderness Back/Spine/Pelvis Back: no CVA tenderness Cervical Spine: Cervical spine tenderness Thoracic/Lumbar Spine: thoracic spinal tenderness and lumbar spinal tenderness Skin Rashes: no rashes Extrem General: Yes no clubbing, cyanosis or edema Coding Level of Care Code Est Pt Level 4 (73739) Diagnoses Iron deficiency anemia, unspecified iron deficiency anemia type D50.9 Iron deficiency anemia type: unspecified iron deficiency Mild intermittent asthma without complication J45.20 Asthma severity: mild Asthma persistence: intermittent Asthma complication type: uncomplicated Arthralgia, unspecified joint M25.50 Joint pain location: unspecified Gastroesophageal reflux disease without esophagitis K21.9 Esophagitis presence: without esophagitis Constipation, unspecified constipation type K59.00 Constipation type: unspecified constipation type Vitamin D deficiency E55.9 Seasonal allergic rhinitis due to pollen J30.1 Allergic rhinitis trigger: pollen Allergic rhinitis seasonality: seasonal Anxiety F41.9 Obesity (BMI 30-39.9) E66.9 Additional Codes PHQ-9 - 76546 - PHQ-9 Billing: Yes ([id number]) Assessment & Plan Assessment & Plan (1) Iron deficiency anemia: Code(s): D50.9 - Iron deficiency anemia, unspecified Category: Medical Qualifiers: Iron deficiency anemia type: unspecified iron deficiency Qualified Code(s): D50.9 - Iron deficiency anemia, unspecified Plan: She is still slightly anemic on her recent labs done last month, with her H/H at 11.2/35.7 She gets IV iron infusions with hematology every 6 months or so when needed Will continue to monitor her CBC regularly Follow up with hematology as scheduled (2) Asthma: Code(s): J45.909 - Unspecified asthma, uncomplicated Category: Medical Qualifiers: Asthma severity: mild Asthma persistence: intermittent Asthma complication type: uncomplicated Qualified Code(s): J45.20 - Mild intermittent asthma, uncomplicated Plan: Controlled Continue Flovent HFA 110 mcg 2 inhalations BID and Albuterol HFA 1 to 2 inhalations Q 6 hours PRN (3) Arthralgia: Code(s): M25.50 - Pain in unspecified joint Category: Medical Qualifiers: Joint pain location: unspecified Qualified Code(s): M25.50 - Pain in unspecified joint Plan: Involving multiple joints She was concerned about her own risks for lupus or other inflammatory joint disease as her mother was diagnosed with lupus and has been struggling with it for years She was seen by rheumatology a few months ago and underwent evaluation - she was sent for some labs to screen for any underlying autoimmune disease and she was glad to find out that all of her tests have come back normal/negative Follow up with rheumatology as scheduled or as needed (4) GERD (gastroesophageal reflux disease): Code(s): K21.9 - Gastro-esophageal reflux disease without esophagitis Category: Medical Qualifiers: Esophagitis presence: without esophagitis Qualified Code(s): K21.9 - Gastro-esophageal reflux disease without esophagitis Plan: Dietary restrictions reinforced Continue Omeprazole 40 mg QD (5) Constipation: Code(s): K59.00 - Constipation, unspecified Category: Medical Qualifiers: Constipation type: unspecified constipation type Qualified Code(s): K59.00 - Constipation, unspecified Plan: Patient is encouraged again on increased oral fluids and dietary fiber She has been prescribed Miralax and Senna Lax by GI previously but patient has not yet really started taking these - she was reportedly told by pharmacy that her insurance will not cover her Rx as they are all available OTC Follow up with GI as scheduled (6) Vitamin D deficiency: Code(s): E55.9 - Vitamin D deficiency, unspecified Category: Medical Plan: Continue Vitamin D3 2000 units QD (7) Allergic rhinitis: Code(s): J30.9 - Allergic rhinitis, unspecified Category: Medical Qualifiers: Allergic rhinitis trigger: pollen Allergic rhinitis seasonality: seasonal Qualified Code(s): J30.1 - Allergic rhinitis due to pollen Plan: Continue Cetirizine 10 mg once a day as needed, Montelukast 10 mg once a day and Fluticasone nasal spray 50 mcg 1 spray into each nostril once a day (8) Anxiety: Code(s): F41.9 - Anxiety disorder, unspecified Category: Medical Plan: Continue Hydroxyzine 25 mg every 8 hours as needed She was also on Escitalopram 10 mg QD in the past but she admitted to self- discontinuing the medication a while back as she felt that it was not helping much (9) Obesity (BMI 30-39.9): Comment: S/P gastric bypass surgery 02/2016 Code(s): E66.9 - Obesity, unspecified Category: Medical Plan: Reinforced diet/exercise as tolerated/lose weight She is now scheduled to see weight management again in a couple of weeks and plans to request to be started on a GLP-1 to help her lose weight and she is wondering if she has any condition that would contraindicate her use of the GLP- 1s Have advised patient that as far as I am aware, she currently does not have any condition that would preclude her from using these medications for weight loss Plan To return as scheduled in September 2024 for her annual physical examination Patient is reminded to get her labs done JUST BEFORE she comes back in September 2024 for her physical exam Orders: Orders Complete Blood Count Auto Diff 09/08/24 D64.9 - Anemia, unspecified, Z00. - Encounter for general adult medical examination without abnormal findings TSH reflex Free T4 09/08/24 E78.00 - Pure hypercholesterolemia, unspecified, Z00. - Encounter for general adult medical examination without abnormal findings Vitamin B12 and Folate 09/08/24 E53.8 - Deficiency of other specified B group vitamins, Z00. - Encounter for general adult medical examination without abnormal findings Vitamin D 25-OH Total 09/08/24 E55.9 - Vitamin D deficiency, unspecified, Z00. - Encounter for general adult medical examination without abnormal findings Comprehensive [place]. Panel Fast 09/08/24 E78.00 - Pure hypercholesterolemia, unspecified, Z00. - Encounter for general adult medical examination without abnormal findings Lipid Panel 09/08/24 E78.00 - Pure hypercholesterolemia, unspecified, Z00. - Encounter for general adult medical examination without abnormal findings UA CC w/rflx Micro + Cult 09/08/24 R30.0 - Dysuria, Z00.00 - Encounter for general adult medical examination without abnormal findings Hemoglobin A1c 09/08/24 R73.01 - Impaired fasting glucose, Z00.00 - Encounter for general adult medical examination without abnormal findings
== END 2024-07-03 13:45 | disposition home or self-care (01) ==
LOC: HO.HMCH 13:06
PROVIDERS: PCP Internal Medicine; Visit Provider Internal Medicine
DX: D50.9 Iron deficiency anemia, unspecified (principal); J45.20 Mild intermittent asthma, uncomplicated; E66.9 Obesity, unspecified; Z68.35 Body mass index [BMI] 35.0-35.9, adult; M25.50 Pain in unspecified joint; K59.00 Constipation, unspecified; K21.9 Gastro-esophageal reflux disease without esophagitis; E55.9 Vitamin D deficiency, unspecified; J30.1 Allergic rhinitis due to pollen; F41.9 Anxiety disorder, unspecified

== ENCOUNTER → 2024-07-03 13:05 | Outpatient (BNVA) | payer OTHER, SELFPAY | PROVIDERS: PCP Internal Medicine; Visit Provider Internal Medicine | DX: D50.9 Iron deficiency anemia, unspecified (principal); J45.20 Mild intermittent asthma, uncomplicated; M25.50 Pain in unspecified joint; K21.9 Gastro-esophageal reflux disease without esophagitis; K59.00 Constipation, unspecified; E55.9 Vitamin D deficiency, unspecified; J30.1 Allergic rhinitis due to pollen; F41.9 Anxiety disorder, unspecified; E66.9 Obesity, unspecified; Z68.35 Body mass index [BMI] 35.0-35.9, adult; Z79.899 Other long term (current) drug therapy | CPT/HCPCS: 96127; 99212 ==

== ENCOUNTER 2024-07-16 12:51 | Outpatient (AMB) | payer OTHER, SELFPAY ==
--- NOTE | 2024-07-16 12:54 | A.OFFVIS_ITS ---
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 Allergies oxycodone [OXYCODONE] Allergy (Severe, Verified 07/16/24 13:00) ANAPHYLAXIS (Tylenol #3 is o.k.) morphine [MORPHINE] Allergy (Intermediate, Verified 07/16/24 13:00) HIVES/DIFF BREATHING (tylenol #3 is o.k.) Medication List - Last Reconciled 07/16/24 by BELTRAN Clifford albuterol sulfate 90 mcg/actuation (Ventolin HFA) 2 puffs inhalation Q4-6H PRN albuterol sulfate 90 mcg/actuation 2 puffs PO QID PRN 30 days cetirizine 10 mg PO DAILY fluticasone propionate 110 mcg/actuation (Flovent HFA) 2 puffs inhalation BID 30 days montelukast 10 mg PO DAILY 90 days HPI Comments Details: 43-year-old female presents to the offic e for follow-up gastric bypass performed on 02/16/2016. Weight today is 195.8 lb with a BMI of 35.8. She was last seen in the office 12/01/2022 with a weight of 193.8 lb and a BMI of 35.4. States she had done well following the meal plan however. Following the meal plan after returning to school. She would follow-up for a while and then not follow it for a while. She did ultimately lose approximately 12 lb but has since gained 14 back. taking mvi Not following a meal plan meal plan previously reccomended: Premier protein RTD shake meal with 6 forks of protein and 6 forks of veg x 2 exercise: walking outside 10 min 2 x per day 2 x per week can join Any post op complications: none JAKE: resolved DM: never HTN: never Hyperlipidemia: never GERD:?0-5 scale ??0 = no symptoms ??1 = symptoms noticeable but not bothersome 2 =symptoms bothersome but not daily ? 3 = symptoms bothersome and daily 4 = symptoms affect daily activities 5 = symptoms are incapacitating, unable to do daily activities ? How bad is the heartburn: 0 ? Heartburn while lying down: 0 ? Heartburn when standing up: 0 ? Heartburn after meals: 0 ? Does heartburn change your diet: 0 ? Does heartburn wake you up from sleep: 0 ? Do you have difficulty swallowin ? Do you have pain with swallowin ? If you take medicine for your reflux, does this affect your daily life: 0 Satisfaction with present condition - satisfied or not satisfied: not satisifed [facility] Medical History Vitamin D deficiency Allergic rhinitis Anxiety GERD (gastroesophageal reflux disease) Asthma Obesity (BMI 30-39.9) Intestinal malabsorption following gastrectomy Surgical History History of tubal ligation History of breast biopsy H/O bilateral breast reduction surgery History of cholecystectomy History of appendectomy S/P gastric bypass Hx of laparoscopic gastric banding Hx of appendectomy Hx laparoscopic cholecystectomy Family History Father No problems noted. Mother Arthritis Obesity Brother No problems noted. Brother No problems noted. Sister No problems noted. Sister No problems noted. Sister No problems noted. Son No problems noted. Son No problems noted. Daughter No problems noted. Father No problems noted. 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 Cognitive needs: No Hearing needs: No Vision needs: Yes Physical Exam Vital Signs: Last Vital Signs Temp 97.7 F 07/16/24 13:04 Pulse 76 07/16/24 13:04 BP 121/76 07/16/24 13:04 Pulse Ox 100 07/16/24 13:04 Oxygen Delivery Method Room Air 07/16/24 13:04 BMI result Body Mass Index 35.8 Const General: healthy appearing and no acute distress Resp Effort & Inspection: normal respiratory effort Auscultation: clear to auscultation bilaterally Cardio Rate: regular rate Rhythm: regular rhythm GI Auscultation: normal bowel sounds Extrem General: Yes normal to inspection Assessment & Plan Assessment & Plan (1) S/P gastric bypass: Comment: DOS 02/16/16, Dr. Salazar Code(s): Z98.84 - Bariatric surgery status Category: Surgical Plan: Overall, patient has maintained her weight over the last 2 years however would like to lose weight. When she did apply the meal plan and exercise plan, she lost 12 lb. She has been given information regarding the right BMI staci and will create a meal plan. Encouraged to joined [employer] fitness gym near her home as her daughter has a membership. Encouraged to utilize the cardio machines to burn 300 calories per day, 7 days a week or 2000 calories per week. Encouraged to by a body composition scale and text weights weekly. We will have her return to the clinic in approximately 1 month. Consideration for starting GLP 1 medications if indicated.
[2024-07-16 13:04] VITALS: BP 121/76; PULSE 76; TEMP 36.5; O2SAT 100; BMI 35.8
== END 2024-07-16 13:32 | disposition home or self-care (01) ==
LOC: HO.HBS 12:52
PROVIDERS: PCP Internal Medicine; Visit Provider Physician Assistant Surgical
DX: E66.9 Obesity, unspecified (principal); Z68.35 Body mass index [BMI] 35.0-35.9, adult; Z98.84 Bariatric surgery status
CPT/HCPCS: 99213; G2211

== ENCOUNTER → 2024-07-16 12:51 | Outpatient (BNVA) | payer OTHER, SELFPAY | PROVIDERS: PCP Internal Medicine; Visit Provider Physician Assistant Surgical | DX: Z98.84 Bariatric surgery status (principal) | CPT/HCPCS: 99212 ==

== ENCOUNTER 2024-07-25 15:46 | Outpatient (AMB) | payer OTHER, SELFPAY ==
[2024-07-25 16:21] VITALS: BP 106/76; PULSE 65; RESP 18; TEMP 37.1; O2SAT 99; BMI 35.6
--- NOTE | 2024-07-25 16:21 | A.OFFPC_ITS ---
Vital Signs 07/25/24 16:21 Height 5 ft 2 in Weight 194 lb 9.6 oz BMI 35.6 BP 106/76 Blood Pressure Location Lt brachial Position Sitting Respiration 18 Pulse 65 Pulse Source Pulse Oximeter Temp 98.8 F Temp Source Oral Pulse Oximetry (%) 99 Oxygen Delivery Method Room Air Intake Visit Reasons: right breast pain Cad Manager Required: No Accompanied by: Self / Same As Patient Allergies oxycodone [OXYCODONE] Allergy (Severe, Verified 07/25/24 16:48) ANAPHYLAXIS (Tylenol #3 is o.k.) morphine [MORPHINE] Allergy (Intermediate, Verified 07/25/24 16:48) HIVES/DIFF BREATHING (tylenol #3 is o.k.) Medication List - Last Reconciled 07/25/24 by SHANAE Alejandro albuterol sulfate 90 mcg/actuation 2 puffs PO QID PRN 30 days cetirizine 10 mg PO DAILY fluticasone propionate 110 mcg/actuation (Flovent HFA) 2 puffs inhalation BID 30 days montelukast 10 mg PO DAILY 90 days Tobacco use date assessed: 07/25/24 Dental Screening Dental Screen Date: 07/25/24 Did you have a dental visit in the last 12 months?: Yes Did you have a dental problem in the last 6 months where you did not have access to dental care?: No Was dental information given to patient?: Patient has dentist HPI right breast pain HPI Details The patient is a 43-year-old female presenting with right breast pain and a palpable lump. Approximately two weeks ago, she detected a lump in her right breast, correlating with her typical pre-menstrual breast tenderness. U nlike in the past, the lump has persisted beyond the expected timeframe of the menstrual cycle, and breast pain began earlier this week, which led her to seek medical evaluation. She describes a throbbing pain in the area of the lump on the right breast, located more noticeably upon applying pressure, and has classified the lump as particularly hard. There is no associated drainage, numbness, or systemic symptoms. Her history of dense breast tissue complicates imaging, requiring diagnostic imaging type mammogram over a standard mammogram. The patient expresses concern due to awareness that while breast pain is often benign, it requires further evaluation in the context of a persistent lump, especially as this is the first occurrence of this intensity outside of her menstrual cycle. [facility] Medical History Vitamin D deficiency Allergic rhinitis Anxiety GERD (gastroesophageal reflux disease) Asthma Obesity (BMI 30-39.9) Intestinal malabsorption following gastrectomy Surgical History History of tubal ligation History of breast biopsy H/O bilateral breast reduction surgery History of cholecystectomy History of appendectomy S/P gastric bypass Hx of laparoscopic gastric banding Hx of appendectomy Hx laparoscopic cholecystectomy Family History Father No problems noted. Mother Arthritis Obesity Brother No problems noted. Brother No problems noted. Sister No problems noted. Sister No problems noted. Sister No problems noted. Son No problems noted. Son No problems noted. Daughter No problems noted. Father No problems noted. 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 Cognitive needs: No Hearing needs: No Vision needs: Yes (Glasses/ Contact lenses) Questionnaire Thrive Questionnaire Date Thrive assessed: 07/25/24 I am a: Patient What is your living situation today?: I have a steady place to live Within the past 12 months, did the food you bought not last and you didn't have the money to get more?: Never true Within the past 12 months, did you worry whether your food would run out before you got money to buy more?: Never true Do you have trouble paying for medicines?: No Do you have trouble getting transportation to medical appointments?: No Do you have trouble paying your heating and electricity bill?: No Do you have trouble taking care of your child, family member or friend?: No Do you have trouble with day-to-day activities such as bathing, preparing meals, shopping, managing finances, etc.?: No Are you currently unemployed and looking for a job?: No Are you interested in more education?: No Please select the resources that you would like help with: None Currently or been in a relationship where the following occur: No concerns reported THRIVE Score: 0 AUDIT C Alcohol Use Questionnaire (AUDIT-C) 1. How often do you have a drink containing alcohol?: Never Total Score: 0 Score Reviewed/Action Taken: No AMA-7 AMB Questionnaire AMA-7 Date AMA - 7 assessed: 07/03/24 Source: Developed by Drs. Dom Britt, Ami Pratt, Americo Pastrana and colleagues, with an educational steven from [employer]. Review of Systems Eyes Reports no additional complaints ENT Reports no additional complaints Card Denies chest pain, Denies leg edema, Denies lightheadedness and Reports other (Right breast pain) Resp Denies cough, Denies hemoptysis and Denies wheezing Aller/Immun Denies wheezing Physical exam (Primary Care) Vital Signs: Last Vital Signs Temp 98.8 F 07/25/24 16:21 Pulse 65 07/25/24 16:21 Resp 18 07/25/24 16:21 BP 106/76 07/25/24 16:21 Pulse Ox 99 07/25/24 16:21 Oxygen Delivery Method Room Air 07/25/24 16:21 BMI result Body Mass Index 35.6 Tobacco/Smoking Status: Tobacco use Status Tobacco use date assessed 07/25/24 07/25/24 16:33 Patient Tobacco Use Status Never used Tobacco 07/25/24 16:33 e-Cigarette/Vaping Use Never Used 07/25/24 16:33 Thrive Assessment: Date of Thrive Assessment Date Thrive assessed 07/25/24 07/25/24 16:33 Currently or been in a relationship where the following occur: No concerns reported Const General: healthy appearing, no acute distress, alert and awake Nutritional Appearance: well nourished HENMT Ears: external ears normal General nose exam: Normal external nose present Eyes Conjunctivae: conjunctivae normal Sclerae: sclerae normal Neck Neck: Yes no lymphadenopathy and Yes no JVD Thyroid: Thyroid normal Carotids: no bruits Chest Breast/axilla inspection: abnormal inspection of the breast (Right breast semi firm lump at 09:00) Breast/axilla palpation: no axillary lymphadenopathy Resp Effort & Inspection: normal respiratory effort and not tachypneic Auscultation: no crackles, no rales, no rhonchi and no wheezes Cardio Rate: regular rate Rhythm: regular rhythm Heart sounds: no murmurs and normal S1 and S2 Skin General skin exam: no rashes or lesions noted and dry skin Coding Level of Care Code Est Pt Level 3 (78767) Diagnoses Painful lumpy right breast N64.4; N63.10 Time Spent (min) 29 Assessment & Plan Assessment & Plan (1) Painful lumpy right breast: Code(s): N64.4 - Mastodynia; N63.10 - Unspecified lump in the right breast, unspecified quadrant Category: Medical Plan I have ordered a diagnostic mammogram along with an ultrasound to thoroughly evaluate the right breast lump, considering her history of dense breast tissue. As standard mammograms may not be sufficient for diagnostic purposes, these measures are necessary to ensure a comprehensive assessment. Patient was informed and verbally consented to the use of an ambient scribe for clinic note documentation during this visit. Orders: Orders MM tomosynthesis diagnostic BI Today N63.10 - Unspecified lump in the right breast, unspecified quadrant, N64.4 - Mastodynia US breast RT limited Today N63.10 - Unspecified lump in the right breast, unspecified quadrant, N64.4 - Mastodynia
== END 2024-07-25 17:04 | disposition home or self-care (01) ==
LOC: HO.HMCH 15:46
PROVIDERS: PCP Internal Medicine
DX: N64.4 Mastodynia (principal); N63.10 Unspecified lump in the right breast, unspecified quadrant

== ENCOUNTER → 2024-07-25 15:46 | Outpatient (BNVA) | payer OTHER, SELFPAY | PROVIDERS: PCP Internal Medicine | DX: N64.4 Mastodynia (principal); N63.10 Unspecified lump in the right breast, unspecified quadrant | CPT/HCPCS: 99212 ==

== ENCOUNTER 2024-08-15 11:01 | Outpatient (AMB) | payer OTHER, SELFPAY ==
[2024-08-15 09:05] VITALS: BMI 35.7
--- NOTE | 2024-08-15 09:05 | A.OFFVIS_ITS ---
VS Expanded 08/15/24 09:05 Height 5 ft 2 in Weight 195 lb BMI 35.7 Intake Visit Reasons: TV PO GBP 02/16/2016 Allergies oxycodone [OXYCODONE] Allergy (Severe, Verified 07/25/24 16:48) ANAPHYLAXIS (Tylenol #3 is o.k.) morphine [MORPHINE] Allergy (Intermediate, Verified 07/25/24 16:48) HIVES/DIFF BREATHING (tylenol #3 is o.k.) HPI Comments Details: 43-year-old female presents to the office for follow-up gastric bypass performed on 02/16/2016. Weight today is 195 lb with a BMI of 35.7. She was last seen in the office about a month ago with a weight of 195.8 lb and a BMI of 35.8. States she did not go into the right BMI staci. She did not create a meal plan as we discussed at her last visit. She states that she has been doing 2 shakes and meal throughout the day. She has been drinking her shakes rapidly and feels some dyspepsia afterwards. Additionally, she was not taking proton pump inhibitor. meal plan previously recommended: Premier protein RTD shake x 2 meal with 6 forks of protein and 6 forks of veg x 1 exercise: PF 2 x per week, treadmill 1 hr, 300 PFSH Medical History Vitamin D deficiency Allergic rhinitis Anxiety GERD (gastroesophageal reflux disease) Asthma Obesity (BMI 30-39.9) Intestinal malabsorption following gastrectomy Surgical History History of tubal ligation History of breast biopsy H/O bilateral breast reduction surgery History of cholecystectomy History of appendectomy S/P gastric bypass Hx of laparoscopic gastric banding Hx of appendectomy Hx laparoscopic cholecystectomy Family History Father No problems noted. Mother Arthritis Obesity Brother No problems noted. Brother No problems noted. Sister No problems noted. Sister No problems noted. Sister No problems noted. Son No problems noted. Son No problems noted. Daughter No problems noted. Father No problems noted. 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 Cognitive needs: No Hearing needs: No Vision needs: Yes (Glasses/ Contact lenses) Telehealth Telehealth Telehealth Platform: Telephone Location of provider rendering services: practice address Location of patient: address on file Patient Identification confirmed using: Name, : Yes Telehealth method: voice only Patient verbally consented to treatment: Yes Patient verbally consented to billing insurance company: Yes Patient informed of any privacy concerns related to visit: Yes Minutes spent on Phone/Video with Pt.: 15 Assessment & Plan Assessment & Plan (1) S/P gastric bypass: Comment: FRANCISCO 02/16/16, Dr. Salazar Code(s): Z98.84 - Bariatric surgery status Category: Surgical Plan: Discussed the principles of discipline, consistency and time. Additionally discussed the importance of following a structured meal plan. Discussed her dyspepsia is directly related to the speed with which she is drinking her shakes. Encouraged her to go onto the right BMI stcai to create her meal plan and to text if there are any problems. Encouraged to go to the gym 7 days per week, goal of burning 300 calories per day. Additionally we will prescribe omeprazole. She states that she wants to lose weight and feels as though she is doing all that she can, we discussed strategies to improve her efforts to help her achieve her goals. Medications: New omeprazole 40 mg PO DAILY 90 caps 3RF
== END 2024-08-15 11:02 | disposition home or self-care (01) ==
LOC: HO.HBS 11:01
PROVIDERS: PCP Internal Medicine; Visit Provider Physician Assistant Surgical
DX: E66.9 Obesity, unspecified (principal); Z68.35 Body mass index [BMI] 35.0-35.9, adult; Z98.84 Bariatric surgery status
CPT/HCPCS: 99213; G2211

== ENCOUNTER → 2024-08-15 11:01 | Outpatient (BNVA) | payer OTHER, SELFPAY | PROVIDERS: PCP Internal Medicine; Visit Provider Physician Assistant Surgical ==

== ENCOUNTER 2024-09-17 09:58 | Outpatient (AMB) | payer OTHER, SELFPAY ==
--- NOTE | 2024-09-17 10:12 | A.OFFPC_ITS ---
Vital Signs 09/17/24 10:13 Height 5 ft 2 in Weight 198 lb BMI 36.2 BP 114/80 Blood Pressure Location Lt brachial Position Sitting Pulse 81 Pulse Source Pulse Oximeter Pulse Oximetry (%) 98 Oxygen Delivery Method Room Air Intake Visit Reasons: Annual Exam Intake Note: Patient here for a physical exam Management Manager Required: No Accompanied by: Self / Same As Patient Allergies oxycodone (OXYCODONE) Allergy (Severe, Verified 09/17/24 11:42) ANAPHYLAXIS (Tylenol #3 is o.k.) morphine (MORPHINE) Allergy (Intermediate, Verified 09/17/24 11:42) HIVES/DIFF BREATHING (tylenol #3 is o.k.) Medication List - Last Reconciled 09/17/24 by Gabriele Means MD albuterol sulfate 90 mcg/actuation 2 puffs PO QID PRN 30 days cetirizine 10 mg PO DAILY fluticasone propionate 110 mcg/actuation (Flovent HFA) 2 puffs inhalation BID 30 days omeprazole 40 mg PO DAILY tirzepatide (weight loss) (Zepbound) 2.5 mg (0.5 mL) subcut QWEEK 4 weeks Tobacco use date assessed: 07/25/24 Dental Screening Dental Screen Date: 07/25/24 HPI Annual Exam HPI Details Patient comes in today for her annual physical examination States that she feels okay but is frustrated that she has not been able to lose any weight at all since her last visit States that she is now seeing weight management here at [facility] [place] but does not think that she will be able to follow what they are recommending - that she drinks protein shakes 3 times a day in addition to a regimented diet Would like to see if she can get started on the GLP-1 injections by us to help h er lose weight She denies any headaches or dizziness Denies any chest pains, no SOB No nausea/vomiting, no abdominal pain No change in bowel habits noted She denies any acute urinary symptoms She is up-to-date with her annual mammogram and is scheduled for some follow up exam of her right breast lump in a few weeks on 10/05/2024 She has not had her yearly gynecology exam and pap smear in several years now - states that she used to go to [facility] [place] for this She was not able to get her follow up labs done prior to her appointment today - states that she can go and get them done as soon as she leaves the office today [facility] Medical History Vitamin D deficiency Allergic rhinitis Anxiety GERD (gastroesophageal reflux disease) Asthma Obesity (BMI 30-39.9) Intestinal malabsorption following gastrectomy Surgical History History of tubal ligation History of breast biopsy H/O bilateral breast reduction surgery History of cholecystectomy History of appendectomy S/P gastric bypass Hx of laparoscopic gastric banding Hx of appendectomy Hx laparoscopic cholecystectomy Family History Father No problems noted. Mother Arthritis Obesity Brother No problems noted. Brother No problems noted. Sister No problems noted. Sister No problems noted. Sister No problems noted. Son No problems noted. Son No problems noted. Daughter No problems noted. Father No problems noted. 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 1. Little interest or pleasure in doing things: not at all 2. Feeling down, depressed, or hopeless: not at all 3. Trouble falling or staying asleep, or sleeping too much: not at all 4. Feeling tired or having little energy: not at all 5. Poor appetite or overeating: not at all 6. Feeling bad about yourself - or that you are a failure or have let yourself or your family down: not at all 7. Trouble concentrating on things, such as reading the newspaper or watching television: not at all 8. Moving or speaking so slowly that other people could have noticed. Or the opposite - being so fidgety or restless that you have been moving around a lot more than usual: not at all 9. Thoughts that you would be better off or of hurting yourself in some way: not at all Total score: 0 Depression Screening Interpretation: Negative Depression Screening Done: Yes 58103 - PHQ-9 Billing: Yes Source: Developed by Drs. Dom Britt, Ami Pratt, Americo Pastrana and colleagues, with an educational steven from [employer]. Thrive Questionnaire Date Thrive assessed: 07/25/24 I am a: Patient What is your living situation today?: I have a steady place to live Within the past 12 months, did the food you bought not last and you didn't have the money to get more?: Never true Within the past 12 months, did you worry whether your food would run out before you got money to buy more?: Never true Do you have trouble paying for medicines?: No Do you have trouble getting transportation to medical appointments?: No Do you have trouble paying your heating and electricity bill?: No Do you have trouble taking care of your child, family member or friend?: No Do you have trouble with day-to-day activities such as bathing, preparing meals, shopping, managing finances, etc.?: No Are you currently unemployed and looking for a job?: No Are you interested in more education?: No Please select the resources that you would like help with: None Currently or been in a relationship where the following occur: No concerns reported THRIVE Score: 0 AUDIT C Alcohol Use Questionnaire (AUDIT-C) 1. How often do you have a drink containing alcohol?: Never Total Score: 0 Score Reviewed/Action Taken: Yes AMA-7 AMB Questionnaire AMA-7 Date AMA - 7 assessed: 09/17/24 Feeling nervous, anxious, or on edge: 0 = Not at all Not being able to stop or control worryin = Not at all Worrying too much about different things: 0 = Not at all Trouble relaxin = Not at all Being so restless that it is hard to sit still: 0 = Not at all Becoming easily annoyed or irritable: 0 = Not at all Feeling afraid as if something awful might happen: 0 = Not at all Total AMA-7 score (0-4 normal; 5-9 mild; 10-14 moderate; 15-21 severe): 0 Source: Developed by Drs. Dom Britt, Ami Pratt, Americo Pastrana and colleagues, with an educational steven from [employer]. Review of Systems Const Denies chills, Denies fatigue, Denies fever(s), Denies headache(s) and Denies malaise Eyes Denies blurry vision, Denies change in vision, Denies irritation and Denies itchy eyes ENT Denies dysphagia, Denies dizziness, Denies otalgia, Denies headache(s), Denies nasal congestion, Denies neck pain, Denies odynophagia, Denies sinus pain and Denies sore throat Card Denies chest pain, Denies rapid heart rate, Denies irregular heart rhythm, Denies palpitations and Denies dyspnea Resp Denies chest congestion, Denies cough, Denies dyspnea and Denies wheezing GI Denies abdominal pain, Denies bloating, Denies constipation, Denies dysphagia, Denies heartburn, Denies diarrhea, Denies nausea, Denies odynophagia and Denies vomiting Denies hematuria, Denies urinary frequency, Denies dysuria, Denies urinary incontinence and Denies urinary urgency Musc Denies back pain, Denies arthralgias, Denies joint swelling, Denies muscle weakness and Denies neck pain Skin/Breast Denies breast pain, Denies breast mass, Denies change in pigmentation, Denies lesions, Denies rash and Denies unusual bruising Neuro Denies dizziness, Denies headache(s) and Denies paresthesias Psych Denies anxiety and Denies depression Endo Denies fatigue and Denies palpitations Devin/Lymph Denies easy bruising Aller/Immun Denies itchy eyes and Denies wheezing Physical exam (Primary Care) Vital Signs: Last Vital Signs Pulse 81 09/17/24 10:13 BP 114/80 09/17/24 10:13 Pulse Ox 98 09/17/24 10:13 Oxygen Delivery Method Room Air 09/17/24 10:13 BMI result Body Mass Index 36.2 Tobacco/Smoking Status: Tobacco use Status Tobacco use date assessed 07/25/24 09/17/24 10:16 Patient Tobacco Use Status Never used Tobacco 09/17/24 10:16 e-Cigarette/Vaping Use Never Used 09/17/24 10:16 PHQ-9: PHQ-9 Score PHQ-9: Total score 0 09/17/24 10:52 Depression Screening Interpretation: Negative Thrive Assessment: Date of Thrive Assessment Date Thrive assessed 07/25/24 09/17/24 10:16 Currently or been in a relationship where the following occur: No concerns reported Const General: no acute distress, alert and awake Orientation/consciousness: patient oriented x3 HENMT Head: Yes normocephalic and Yes atraumatic Ears: external ears normal, TM's normal bilaterally and EAC's normal General nose exam: No nasal discharge present Face and sinus: Yes normal facial exam and Yes sinuses nontender Teeth and gingiva: dentition normal Throat: Yes posterior oropharynx normal and Yes tonsils normal (no TP congestion) Eyes Eyelids: Yes eyelids normal Conjunctivae: conjunctivae normal Pupils: Equal, round and reactive pupils present EOM: EOMs intact bilaterally Neck Neck: Yes no lymphadenopathy and Yes supple Thyroid: Thyroid normal Resp Auscultation: clear to auscultation bilaterally, no rales and no wheezes Cardio Rate: regular rate Rhythm: regular rhythm Heart sounds: no murmurs GI Palpation (GI): Soft to palpation, nontender and No hepatosplenomegaly present Auscultation: normal bowel sounds General: Yes no CVA tenderness Back/Spine/Pelvis Back: no CVA tenderness Thoracic/Lumbar Spine: thoracic and lumbar spine normal to inspection Skin Lesions: no lesions Rashes: no rashes Neuro General: patient oriented x3, moves all extremities, no focal motor deficits and CN's II-XI intact bilaterally Cranial nerves: Yes Equal, round and reactive pupils present Cognition (Neuro): normal cognition Gait exam (Neuro): Normal gait present Extrem General: Yes no clubbing, cyanosis or edema Coding Level of Care Code Est Pt Prev Care 40-64y(71146) Diagnoses Annual physical exam Z00.00 Iron deficiency anemia, unspecified iron deficiency anemia type D50.9 Iron deficiency anemia type: unspecified iron deficiency Mild intermittent asthma without complication J45.20 Asthma complication type: uncomplicated Asthma persistence: intermittent Asthma severity: mild Arthralgia, unspecified joint M25.50 Joint pain location: unspecified Gastroesophageal reflux disease without esophagitis K21.9 Esophagitis presence: without esophagitis Constipation, unspecified constipation type K59.00 Constipation type: unspecified constipation type Vitamin D deficiency E55.9 Seasonal allergic rhinitis due to pollen J30.1 Allergic rhinitis seasonality: seasonal Allergic rhinitis trigger: pollen Anxiety F41.9 Obesity (BMI 30-39.9) E66.9 Cervical cancer screening Z12.4 Additional Codes PHQ-9 - 50875 - PHQ-9 Billing: Yes ([id number]) Assessment & Plan Assessment & Plan (1) Annual physical exam: Code(s): Z00.00 - Encounter for general adult medical examination without abnormal findings Category: Medical Plan: Check labs - patient is instructed to go and get her previously ordered labs done RUDDY to complete her annual physical today She is up-to-date with her annual mammogram and is scheduled for follow up exam of her right breast lump in a few weeks on 10/05/2024 She has not had her yearly gynecology exam and pap smear in several years now - she used to go here to [facility] [place] and will be referred again to get her yearly exam updated (2) Iron deficiency anemia: Code(s): D50.9 - Iron deficiency anemia, unspecified Category: Medical Qualifiers: Iron deficiency anemia type: unspecified iron deficiency Qualified Code(s): D50.9 - Iron deficiency anemia, unspecified Plan: She is still slightly anemic on her recent labs done a few months ago, with her H/H at 11.2/35.7 She gets IV iron infusions with hematology every 6 months or so when needed Will continue to monitor her CBC regularly - will get her CBC rechecked today Follow up with hematology as scheduled (3) Asthma: Code(s): J45.909 - Unspecified asthma, uncomplicated Category: Medical Qualifiers: Asthma complication type: uncomplicated Asthma persistence: intermittent Asthma severity: mild Qualified Code(s): J45.20 - Mild intermittent asthma, uncomplicated Plan: Controlled Continue Flovent HFA 110 mcg 2 inhalations BID and Albuterol HFA 1 to 2 inhalations Q 6 hours PRN (4) Arthralgia: Code(s): M25.50 - Pain in unspecified joint Category: Medical Qualifiers: Joint pain location: unspecified Qualified Code(s): M25.50 - Pain in unspecified joint Plan: Involving multiple joints She was concerned about her own risks for lupus or other inflammatory joint disease as her mother was diagnosed with lupus and has been struggling with it for years She was seen by rheumatology a few months ago and underwent evaluation - she was sent for some labs to screen for any underlying autoimmune disease and she was relieved to find out that all of her tests have come back normal/negative Follow up with rheumatology as scheduled or as needed (5) GERD (gastroesophageal reflux disease): Code(s): K21.9 - Gastro-esophageal reflux disease without esophagitis Category: Medical Qualifiers: Esophagitis presence: without esophagitis Qualified Code(s): K21.9 - Gastro-esophageal reflux disease without esophagitis Plan: Dietary restrictions reinforced Continue Omeprazole 40 mg QD (6) Constipation: Code(s): K59.00 - Constipation, unspecified Category: Medical Qualifiers: Constipation type: unspecified constipation type Qualified Code(s): K59.00 - Constipation, unspecified Plan: Patient is encouraged again on increased oral fluids and dietary fiber She has been prescribed Miralax and Senna Lax by GI previously but patient has not yet really started taking these - she was reportedly told by pharmacy that her insurance will not cover her Rx as they are all available OTC Follow up with GI as scheduled (7) Vitamin D deficiency: Code(s): E55.9 - Vitamin D deficiency, unspecified Category: Medical Plan: Continue Vitamin D3 2000 units QD (8) Allergic rhinitis: Code(s): J30.9 - Allergic rhinitis, unspecified Category: Medical Qualifiers: Allergic rhinitis seasonality: seasonal Allergic rhinitis trigger: pollen Qualified Code(s): J30.1 - Allergic rhinitis due to pollen Plan: Continue Cetirizine 10 mg once a day as needed, Montelukast 10 mg once a day and Fluticasone nasal spray 50 mcg 1 spray into each nostril once a day (9) Anxiety: Code(s): F41.9 - Anxiety disorder, unspecified Category: Medical Plan: Continue Hydroxyzine 25 mg every 8 hours as needed She was also on Escitalopram 10 mg QD in the past but she admitted to self- discontinuing the medication a while back as she felt that it was not helping much (10) Obesity (BMI 30-39.9): Comment: S/P gastric bypass surgery 02/2016 Code(s): E66.9 - Obesity, unspecified Category: Medical Plan: Reinforced diet/exercise as tolerated/lose weight She is now seeing weight management again but does not feel that she can comply with their regimented 3 proteins shakes a day Per her request, will try starting her on Zepbound 2.5 mg SQ once a week but have advised patient that this will ultimately still depend on whether her insurance will agree to cover the Rx She is advised to continue following up with weight management as scheduled (11) Cervical cancer screening: Code(s): Z12.4 - Encounter for screening for malignant neoplasm of cervix Category: Medical Plan: Will refer her back to the [facility] [place] to start her back up on her yearly gynecology exam and pap smear Plan Follow up in 4 months Orders: 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
[2024-09-17 10:13] VITALS: BP 114/80; PULSE 81; O2SAT 98; BMI 36.2
== END 2024-09-17 11:45 | disposition home or self-care (01) ==
LOC: HO.HMCH 09:59
PROVIDERS: PCP Internal Medicine; Visit Provider Internal Medicine
DX: Z00.00 Encounter for general adult medical examination without abnormal findings (principal); D50.9 Iron deficiency anemia, unspecified; E66.9 Obesity, unspecified; Z68.36 Body mass index [BMI] 36.0-36.9, adult; J45.20 Mild intermittent asthma, uncomplicated; M25.50 Pain in unspecified joint; K21.9 Gastro-esophageal reflux disease without esophagitis; K59.00 Constipation, unspecified; E55.9 Vitamin D deficiency, unspecified; J30.1 Allergic rhinitis due to pollen; F41.9 Anxiety disorder, unspecified

== ENCOUNTER → 2024-09-17 09:58 | Outpatient (BNVA) | payer OTHER, SELFPAY | PROVIDERS: PCP Internal Medicine; Visit Provider Internal Medicine | DX: Z00.00 Encounter for general adult medical examination without abnormal findings (principal); D50.9 Iron deficiency anemia, unspecified; J45.20 Mild intermittent asthma, uncomplicated; M25.50 Pain in unspecified joint; K21.9 Gastro-esophageal reflux disease without esophagitis; K59.00 Constipation, unspecified; E55.9 Vitamin D deficiency, unspecified; J30.1 Allergic rhinitis due to pollen; F41.9 Anxiety disorder, unspecified; E66.9 Obesity, unspecified; Z68.36 Body mass index [BMI] 36.0-36.9, adult; Z79.899 Other long term (current) drug therapy; Z13.31 Encounter for screening for depression; Z13.39 Encounter for screening examination for other mental health and behavioral disorders | CPT/HCPCS: 96127; 99396 ==

== ENCOUNTER 2024-10-05 10:52 | Outpatient (REF) | payer OTHER, SELFPAY ==
--- NOTE | ~2024-10-05 | US_ITS ---
EXAMINATION: MM DIAGNOSTIC DIGITAL BREAST TOMOSYNTHESIS, BILATERAL Limited right breast ultrasound. CLINICAL INFORMATION: Right breast palpable lump upper outer quadrant. COMPARISON: Mammography: Comparison is made with relevant prior exams. TECHNIQUE: Digital breast mammography with tomosynthesis is performed in both the craniocaudal and mediolateral oblique views along with computer-aided detection (CAD). FINDINGS: There are scattered areas of fibroglandular density (ACR BI-RADS breast composition Category b). BB marker in the upper outer right breast without underlying abnormal finding. There are no significant masses, abnormal calcifications, or other abnormalities. Targeted color Doppler ultrasound scanning in the upper outer right breast area of patient's palpable lump from 7-11 o'clock demonstrates normal fibronodular breast tissue there are a few incidental hypoechoic oval circumscribed simple to minimally complicated cyst at 9:00 9 cm from the nipple measuring up to 7 mm which are benign. Results are provided to the patient at time of visit by the technologist. US/US breast RT limited mamm only IMPRESSION: Left: Negative. Right: No mammographic or sonographic abnormal finding to account for the patient's right breast palpable lump. Recommend clinical evaluation and follow-up. Incidental minimally complicated cysts in the upper outer right breast at 9:00. Benign. ASSESSMENT: BI-RADS BI-RADS 2 - Benign Findings RECOMMENDATION: 1 year F/U This patient's information was entered into a reminder system with a target due date for their next mammogram. Electronically signed by: Michelle Gil DO 10/05/2024 12:08 PM EDT
== END 2024-10-05 10:53 | disposition home or self-care (01) ==
LOC: HO.MAMMO 10:52
PROVIDERS: PCP Internal Medicine
DX: N64.4 Mastodynia (principal); N63.15 Unspecified lump in the right breast, overlapping quadrants
CPT/HCPCS: 76642; 77062; 77066

== ENCOUNTER → 2024-10-05 11:00 | Outpatient (BNV) | payer OTHER, SELFPAY | PROVIDERS: PCP Internal Medicine; Visit Provider Internal Medicine | DX: N60.01 Solitary cyst of right breast (principal) | CPT/HCPCS: 76642; 77062; 77066 ==

== ENCOUNTER 2024-10-08 07:44 | Outpatient (REF) | payer OTHER, SELFPAY ==
[2024-10-08 07:56] LABS: MANUAL DIFF FLAG NO
[2024-10-08 08:10] LABS: Hematocrit 39.7 % (37.0-47.0); Hemoglobin 13.3 g/dl (12.0-16.0); Imm Gran Abs Auto 0.03 X10*3/uL (0.00-0.03); Imm Gran Pct Auto 0.4 % (0.0-0.4); Lymphocytes Absolute Auto 2.3 X10*3/uL (1.2-4.9); Mean Corpuscular HGB Conc 33.5 g/dl (31.0-35.0); Mean Corpuscular Hemoglobin 28.9 pg (27.0-33.0); Mean Corpuscular Volume 86.1 fL (80.0-98.0); NRBC Abs Auto 0.000 X10*3/uL (0.0-0.012); NRBC Pct Auto 0.0 /100WBC (0.0-0.2); Platelet Count 416 X10*3/uL (160-400); Red Blood Count 4.61 X10*6/uL (4.20-5.50); White Blood Count 8.1 X10*3/uL (4.8-10.8)
[2024-10-08 08:24] LABS: Hemoglobin A1C 119.7959 umol/L; Total Hemoglobin (HGBA1C) 3505.7427 umol/L
[2024-10-08 08:40] LABS: Alanine Aminotransferase 22 U/L (0-31); Albumin Level 4.0 g/dL (3.5-5.0); Alkaline Phosphatase 91 U/L (39-117); Anion Gap 10 (12-20); Aspartate Amino Transferase 27 U/L (5-31); Blood Urea Nitrogen 19 mg/dL (9-16); Calcium 8.3 mg/dL (8.4-10.2); Carbon Dioxide 27 mmol/L (22-29); Chloride 108 mmol/L (96-108); Cholesterol 170 mg/dL (<200); Estimated Glomerular Filt Rate > 60; HDL Cholesterol 53 mg/dL (>40); Potassium 3.6 mmol/L (3.3-5.1); Sodium 141 mmol/L (135-145); Total Protein 6.9 g/dL (6.5-8.0); Triglycerides 78 mg/dL (<150)
[2024-10-08 09:10] LABS: Folate 9.5 ng/mL (> or = 4.0); Vitamin B12 356 pg/mL (200-900)
== END 2024-10-08 07:45 | disposition home or self-care (01) ==
LOC: HO.LAB 07:44
PROVIDERS: Visit Provider Internal Medicine
DX: Z00.00 Encounter for general adult medical examination without abnormal findings (principal); D50.9 Iron deficiency anemia, unspecified; E55.9 Vitamin D deficiency, unspecified; E53.8 Deficiency of other specified B group vitamins; E78.00 Pure hypercholesterolemia, unspecified; R73.01 Impaired fasting glucose
CPT/HCPCS: 36415; 80053; 80061; 82306; 82607; 82746; 83036; 84443; 85025

== ENCOUNTER 2024-10-12 10:15 | Outpatient (AMB) | payer OTHER, SELFPAY ==
[2024-10-12 08:57] VITALS: BMI 36.1
--- NOTE | 2024-10-12 08:57 | A.OFFVIS_ITS ---
VS Expanded 10/12/24 08:57 Height 5 ft 2 in Weight 197 lb 4 oz BMI 36.1 Body Fat % 46.6 Fat Free Mass 105.4 Visceral Fat Rating 18 Body Water % 36.6 Muscle Mass/Score 99 Basal Metabolic Rate/Score 1,402 Intake Visit Reasons: TV PO GBP 02/16/2016 Food Safety Technician Required: No Allergies oxycodone (OXYCODONE) Allergy (Severe, Verified 09/17/24 11:42) ANAPHYLAXIS (Tylenol #3 is o.k.) morphine (MORPHINE) Allergy (Intermediate, Verified 09/17/24 11:42) HIVES/DIFF BREATHING (tylenol #3 is o.k.) Medication List - Last Reconciled 10/12/24 by BELTRAN Clifford albuterol sulfate 90 mcg/actuation 2 puffs PO QID PRN 30 days cetirizine 10 mg PO DAILY fluticasone propionate 110 mcg/actuation (Flovent HFA) 2 puffs inhalation BID 30 days omeprazole 40 mg PO DAILY HPI Comments Details: 43-year-old female presents to the office for follow-up gastric bypass performed on 02/16/2016. Weight today is 197.4 lb with a BMI of 36.1. She was last seen in the office about 2 months ago with a weight of 195 pounds. States she did go into the right BMI staci. She did not create a meal plan as we discussed at her last visit. She states that she has been doing 2 shakes and meal throughout the day. She has been drinking her shakes rapidly and feels some dyspepsia afterwards. Additionally, she was not taking proton pump inhibitor. Not exercising. currently doing rtd fairlife 30 gm shake another shake HB egg and salad marshallese yogurt or cheese meal with 6 forks and 6 forks meal plan previously recommended: Premier protein RTD shake x 2 meal with 6 forks of protein and 6 forks of veg x 1 exercise: PF 2 x per week, treadmill 1 hr, 300 PFSH Medical History Vitamin D deficiency Allergic rhinitis Anxiety GERD (gastroesophageal reflux disease) Asthma Obesity (BMI 30-39.9) Intestinal malabsorption following gastrectomy Surgical History History of tubal ligation History of breast biopsy H/O bilateral breast reduction surgery History of cholecystectomy History of appendectomy S/P gastric bypass Hx of laparoscopic gastric banding Hx of appendectomy Hx laparoscopic cholecystectomy Family History Father No problems noted. Mother Arthritis Obesity Brother No problems noted. Brother No problems noted. Sister No problems noted. Sister No problems noted. Sister No problems noted. Son No problems noted. Son No problems noted. Daughter No problems noted. Father No problems noted. 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 Cognitive needs: No Hearing needs: No Vision needs: Yes (Glasses/ Contact lenses) Telehealth Telehealth Telehealth Platform: Telephone Location of provider rendering services: practice address Location of patient: address on file Patient Identification confirmed using: Name, : Yes Telehealth method: voice only Patient verbally consented to treatment: Yes Patient verbally consented to billing insurance company: Yes Patient informed of any privacy concerns related to visit: Yes Minutes spent on Phone/Video with Pt.: 15 Assessment & Plan Assessment & Plan (1) S/P gastric bypass: Comment: FRANCISCO 02/16/16, Dr. Salazar Code(s): Z98.84 - Bariatric surgery status Category: Surgical Plan: Patient has not been exercising at all. She has not been following the meal plan as recommended. She switched to [employer] life ready to drink shake, 30 g. I suggested that if she wants to use this particular shake product, she could have 6 oz of the shake in the morning, repeat at 11, repeat at 2 and have her meal in the evening. Discussed that if she does not exercise, she will not get the results that she is looking for. Encouraged to additionally returned to the right BMI staci for further meal planning if she has changes to her schedule. Encouraged to text with any questions or concerns. We will have her return to the office in February for her 9 year follow-up. Check labs at that time. Medications: Discontinued tirzepatide (weight loss) (Zepbound) for 4 weeks Discontinued Reason: Insurance Denied 2.5 mg (0.5 mL) subcut QWEEK 4 weeks 2 mL 0RF E66.9 - Obesity, unspecified, Z98.84 - Bariatric surgery status
== END 2024-10-12 10:25 | disposition home or self-care (01) ==
LOC: HO.HBS 10:18
PROVIDERS: PCP Internal Medicine; Visit Provider Physician Assistant Surgical
DX: E66.9 Obesity, unspecified (principal); Z68.36 Body mass index [BMI] 36.0-36.9, adult; Z98.84 Bariatric surgery status
CPT/HCPCS: 98013

== ENCOUNTER 2025-01-18 08:43 | Outpatient (REF) | payer OTHER, SELFPAY ==
[2025-01-19 10:21] LABS: Bacterial Vaginosis PCR NEGATIVE (Negative); Candida Group PCR NOT DETECTED (Not Detect); Candida glab krusei PCR NOT DETECTED (Not Detect); Trichomonas vaginalis PCR NOT DETECTED (Not Detect)
[2025-01-19 10:43] LABS: CT PCR NOT DETECTED (Not Detect.); NG PCR NOT DETECTED (Not Detect.)
== END 2025-01-18 08:44 | disposition home or self-care (01) ==
LOC: HO.LNP 08:43
PROVIDERS: PCP Internal Medicine; Visit Provider Advanced Practice Midwife
DX: Z01.419 Encounter for gynecological examination (general) (routine) without abnormal findings (principal); Z12.31 Encounter for screening mammogram for malignant neoplasm of breast; D50.9 Iron deficiency anemia, unspecified; B37.31 Acute candidiasis of vulva and vagina; E66.9 Obesity, unspecified; Z98.84 Bariatric surgery status; Z68.34 Body mass index [BMI] 34.0-34.9, adult; Z20.2 Contact with and (suspected) exposure to infections with a predominantly sexual mode of transmission
CPT/HCPCS: 81515; 87491; 87591; 87626; 88175; 99386

== ENCOUNTER 2025-01-18 08:43 | Outpatient (AMB) | payer OTHER, SELFPAY ==
--- NOTE | 2025-01-18 08:45 | MHC.OFFVIS ---
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: No Information Interpreted: non-clinical & clinical Pan Greaser: Pan Greaser Present Accompanied by: Self / Same As Patient Allergies oxycodone (OXYCODONE) Allergy (Severe, Verified 01/18/25 08:48) ANAPHYLAXIS (Tylenol #3 is o.k.) morphine (MORPHINE) Allergy (Intermediate, Verified 01/18/25 08:48) HIVES/DIFF BREATHING (tylenol #3 is o.k.) Medication List - Last Reconciled 01/18/25 by La Nena Hilario CNM albuterol sulfate 90 mcg/actuation 2 puffs PO QID PRN 30 days cetirizine 10 mg PO DAILY fluticasone propionate 110 mcg/actuation (Flovent HFA) 2 puffs inhalation BID 30 days omeprazole 40 mg PO DAILY Is last menstrual period known: Yes Last menstrual period: 12/21/24 HPI 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 She has not had a operator bearer systems exam for many years because she did not have any problems. She has 3 children she had her tubal ligation afterward she also has had gap Strick lap band and it was later converted to a gastric bypass. The only main issue is that she has difficulty with iron absorption since so periodically she needs iron transfusions because she gets very anemic. Her periods come very regular and they last 5-6 days they are not described as particularly heavy or crampy though she does get a lot of cramps before her. And she isn't sure if it is a week before 2 weeks before. She also gets a lot of vaginal discharge ever since the of her last child it is in the middle part of her menstrual cycle in reviewing her history. She also notices dizziness and feeling weak but she says it happens about the week before her menses not with her menses or at the beginning of the menstruation so it is difficult to correlate it with a potential heavy flow or serious cramps. She says she has had regular lab work and she has no pre diabetes or high cholesterol or high blood pressure or anything. She did gain some weight back after her last large weight loss post surgery and so she is investigating some GLP ones now to see if they will help her lose that extra weight again. She does frequently have yeast infections that she manages with Monistat 7 sometimes there is some residual itching above her clitoris that is very annoying and difficult to eradicate. [facility] Medical History Vitamin D deficiency Allergic rhinitis Anxiety GERD (gastroesophageal reflux disease) Asthma Obesity (BMI 30-39.9) Intestinal malabsorption following gastrectomy Surgical History History of tubal ligation History of breast biopsy H/O bilateral breast reduction surgery History of cholecystectomy History of appendectomy S/P gastric bypass Hx of laparoscopic gastric banding Hx of appendectomy Hx laparoscopic cholecystectomy Family History (Updated 01/18/25 @ 08:51 by Dana Landa CMA) Father No problems noted. Mother Arthritis Obesity Brother No problems noted. Brother No problems noted. Sister No problems noted. Sister No problems noted. Sister No problems noted. Son No problems noted. Son No problems noted. Daughter No problems noted. Father No problems noted. 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 [employer] Cognitive needs: No Hearing needs: No Vision needs: Yes (Glasses/ Contact lenses) Female Reproductive History Menstrual Date of last menstrual period: 12/21/24 control method: permanent sterilization Total pregnancies: 3 Full term: 3 Number of Living Children: 3 Date of Mammogram: 10/05/24 History of abnormal mammogram: No Physical Exam Vital Signs: Last Vital Signs BP 126/74 01/18/25 08:47 BMI result Body Mass Index 34.0 Const General: healthy appearing, comfortable, no acute distress, well developed and alert Nutritional Appearance: average body habitus Orientation/consciousness: patient oriented x3 Limitations: no limitations HEENT Head: Yes normocephalic Neck Neck: Yes normal visual inspection Chest Chest palpation & inspection: normal inspection of the chest Breast/axilla inspection: normal inspection of the breasts and normal inspection of the axillae Breast/axilla palpation: normal palpation of the breasts and normal palpation of the axillae Resp Effort & Inspection: normal respiratory effort GI Inspection: Yes normal to inspection, No Abdominal wall edema and No distended Palpation (GI): Soft to palpation and nontender Other: External exam within normal limits vulva little bit pink consistent with maybe very very very mild yeast. Vagina is pink and moist very healthy appearing mucus that appears that it could be midcycle not consistent with yeast or any other problematic entity periods cervix multiparous pink healthy appearing long close thick mobile nontender uterus small midposition to anteverted and is mobile and nontender adnexa nontender nonenlarged good tone with Kegel. General: Yes bladder normal to palpation External Female Exam: normal external appearance and normal appearance of the urethra Speculum Exam - Vagina: normal appearance of the vagina, normal palpation and normal vaginal discharge Speculum Exam - Cervix: normal appearance of the cervix, normal palpation and nontender Bimanual exam- vagina & uterus: normal bimanual exam, normal palpation, uterine size normal, bladder normal to palpation, consistency normal, normal palpation, uterine mobility normal, uterine shape normal, No Cervical tenderness present, non-tender and no cervical motion tenderness Bimanual Exam- Adnexa, other: normal adnexae, no masses, normal and No adnexal tenderness Neuro General: patient oriented x3 Assessment & Plan Assessment & Plan (1) Breast cancer screening by mammogram: Code(s): Z12.31 - Encounter for screening mammogram for malignant neoplasm of breast Category: Medical (2) Cervical cancer screening: Code(s): Z12.4 - Encounter for screening for malignant neoplasm of cervix Category: Medical (3) Obesity (BMI 30-39.9): Comment: S/P gastric bypass surgery 02/2016 Code(s): E66.9 - Obesity, unspecified Category: Medical (4) S/P gastric bypass: Comment: DOS 02/16/16, Dr. Salazar Code(s): Z98.84 - Bariatric surgery status Category: Surgical (5) Iron deficiency anemia: Comment: Periodically is symptomatic gets iron transfusion secondary to inability to absorb iron. Code(s): D50.9 - Iron deficiency anemia, unspecified Category: Medical Qualifiers: Iron deficiency anemia type: unspecified iron deficiency Qualified Code(s): D50.9 - Iron deficiency anemia, unspecified (6) Yeast infection of the vagina: Comment: Usually treats with Monistat 7 sugars are within normal limits teaching done we will offer Diflucan dose for any intractable case Code(s): B37.31 - Acute candidiasis of vulva and vagina Category: Medical Plan -----Discussed in this visit the following: healthy balanced diet, regular and consistent exercise, getting recommended health screens, doing the best she can for her particular health concerns, kegel exercises, pap smear screening and followup recommendations, mammography screening and SBE, normal changes in cycles in her life stage--- .---I reviewed her symptoms we reviewed what she may have done alleviate symptoms. I reviewed contributing factors to yeast infection including clothing that may be a little tight or does not permit air to pass to the vulva well, including non cotton underwear, nylon and polyester type workout clothes and yoga pants, use of panty liners pads for periods etc. My recommendations include use of the medication that we decided upon, allowing air to her vulva as much as possible including wearing cotton underwear and possibly no underwear at night when possible. Any other contributing factors were explored. I encouraged her not to scratch. I reviewed what to do when she feels symptoms first starting, (re-double her efforts at allowing air to the area.) Explored all of her symptoms and the timing and pre menopausal teaching also done discussed her symptoms in terms of her menstrual cycle and the normalcy of them with the exception of the vaginal itching and burning that is symptomatic of yeast she does wear panty liners so she will endeavor to not do that I am offering prescriptions for Monistat 7 but she also can get it [id number] if she needs it and a prescription for Diflucan for if there is a intractable itching especially near her clitoris which is a very typical area. I could not correlate her midcycle or late cycle dizziness and symptoms to her menstrual cycle but perhaps there and indication that her anemia is needing attention. She is up-to-date with her mammogram scheduling and either just had it or is about to. Orders: Orders Pap Smear Today Z01.419 - Encounter for gynecological examination (general) (routine) without abnormal findings HPV High risk Today Z01.419 - Encounter for gynecological examination (general) (routine) without abnormal findings CT NG by PCR Vag/Cerv Today Z01.419 - Encounter for gynecological examination (general) (routine) without abnormal findings Bacterial Vaginosis Panel Today Z01.419 - Encounter for gynecological examination (general) (routine) without abnormal findings Medications: New fluconazole may repeat second dose 72 hrs after first dose if symptoms persist 150 mg PO Q3D 2 tabs 1RF 2 doses miconazole nitrate 2% (Miconazole-7) 1 appful vaginal BEDTIME 45 grams 4RF 7 days Coding Level of Care Code New Pt Prev Care 40-64y(12891) Diagnoses Breast cancer screening by mammogram Z12.31 Cervical cancer screening Z12.4 Obesity (BMI 30-39.9) E66.9 S/P gastric bypass Z98.84 Iron deficiency anemia, unspecified iron deficiency anemia type D50.9 Iron deficiency anemia type: unspecified iron deficiency Yeast infection of the vagina B37.31
[2025-01-18 08:47] VITALS: BP 126/74; BMI 34.0
== END 2025-01-18 09:48 | disposition home or self-care (01) ==
LOC: HO.HWS 08:44
PROVIDERS: PCP Internal Medicine; Visit Provider Advanced Practice Midwife
DX: Z01.419 Encounter for gynecological examination (general) (routine) without abnormal findings (principal); B37.31 Acute candidiasis of vulva and vagina; E66.9 Obesity, unspecified; Z98.84 Bariatric surgery status; D50.9 Iron deficiency anemia, unspecified; Z12.31 Encounter for screening mammogram for malignant neoplasm of breast
CPT/HCPCS: 99386; 99459

== ENCOUNTER 2025-01-28 09:16 | Outpatient (AMB) | payer OTHER, SELFPAY ==
[2025-01-28 09:25] VITALS: BP 110/76; PULSE 82; O2SAT 98; BMI 34.2
--- NOTE | 2025-01-28 09:25 | A.OFFPC_ITS ---
Vital Signs 01/28/25 09:25 Height 5 ft 2 in Weight 187 lb 4 oz BMI 34.2 BP 110/76 Blood Pressure Location Lt brachial Position Sitting Pulse 82 Pulse Source Pulse Oximeter Pulse Oximetry (%) 98 Oxygen Delivery Method Room Air Intake Visit Reasons: 4 mnth f/u Milk Collector Required: No Accompanied by: Self / Same As Patient Allergies oxycodone (OXYCODONE) Allergy (Severe, Verified 01/28/25 09:43) ANAPHYLAXIS (Tylenol #3 is o.k.) morphine (MORPHINE) Allergy (Intermediate, Verified 01/28/25 09:43) HIVES/DIFF BREATHING (tylenol #3 is o.k.) Medication List - Last Reconciled 01/28/25 by Gabriele Means MD albuterol sulfate 90 mcg/actuation 2 puffs PO QID PRN 30 days cetirizine 10 mg PO DAILY fluticasone propionate 110 mcg/actuation (Flovent HFA) 2 puffs inhalation BID 30 days omeprazole 40 mg PO DAILY Tobacco use date assessed: 01/28/25 Dental Screening Dental Screen Date: 01/28/25 Did you have a dental visit in the last 12 months?: Yes Did you have a dental problem in the last 6 months where you did not have access to dental care?: No Was dental information given to patient?: Patient has dentist HPI 4 tonsil hospital f/u HPI Details Patient comes in today for her follow up visit States that she feels okay She denies any headaches or dizziness Denies any chest pains, no SOB No nausea/vomiting, no abdominal pain No change in bowel habits noted Needs her Albuterol inhaler Rx refilled She was not able to get on her GLP-1 injection that we previously prescribed for her as her insurance denied her Rx but she is now scheduled to see weight management in a couple of weeks She had her follow up labs done back in October 2024 - to discuss her results [facility] Medical History Vitamin D deficiency Allergic rhinitis Anxiety GERD (gastroesophageal reflux disease) Asthma Obesity (BMI 30-39.9) Intestinal malabsorption following gastrectomy Surgical History History of tubal ligation History of breast biopsy H/O bilateral breast reduction surgery History of cholecystectomy History of appendectomy S/P gastric bypass Hx of laparoscopic gastric banding Hx of appendectomy Hx laparoscopic cholecystectomy Family History Father No problems noted. Mother Arthritis Obesity Brother No problems noted. Brother No problems noted. Sister No problems noted. Sister No problems noted. Sister No problems noted. Son No problems noted. Son No problems noted. Daughter No problems noted. Father No problems noted. 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 1. Little interest or pleasure in doing things: not at all 2. Feeling down, depressed, or hopeless: not at all 3. Trouble falling or staying asleep, or sleeping too much: not at all 4. Feeling tired or having little energy: not at all 5. Poor appetite or overeating: not at all 6. Feeling bad about yourself - or that you are a failure or have let yourself or your family down: not at all 7. Trouble concentrating on things, such as reading the newspaper or watching television: not at all 8. Moving or speaking so slowly that other people could have noticed. Or the opposite - being so fidgety or restless that you have been moving around a lot more than usual: not at all 9. Thoughts that you would be better off or of hurting yourself in some way: not at all Total score: 0 Depression Screening Interpretation: Negative Depression Screening Done: Yes 19998 - PHQ-9 Billing: Yes Source: Developed by Drs. Dom Britt, Ami Pratt, Americo Pastrana and colleagues, with an educational steven from [employer]. Thrive Questionnaire Date Thrive assessed: 01/28/25 I am a: Patient What is your living situation today?: I have a steady place to live Within the past 12 months, did the food you bought not last and you didn't have the money to get more?: Never true Within the past 12 months, did you worry whether your food would run out before you got money to buy more?: Never true Do you have trouble paying for medicines?: No Do you have trouble getting transportation to medical appointments?: No Do you have trouble paying your heating and electricity bill?: No Do you have trouble taking care of your child, family member or friend?: No Do you have trouble with day-to-day activities such as bathing, preparing meals, shopping, managing finances, etc.?: No Are you currently unemployed and looking for a job?: No Are you interested in more education?: No Please select the resources that you would like help with: None Currently or been in a relationship where the following occur: No concerns reported THRIVE Score: 0 AUDIT C Alcohol Use Questionnaire (AUDIT-C) 1. How often do you have a drink containing alcohol?: Never 3. How often do you have six or more drinks on one occasion?: Never Total Score: 0 Score Reviewed/Action Taken: Yes AMA-7 AMB Questionnaire AMA-7 Date AMA - 7 assessed: 01/28/25 Feeling nervous, anxious, or on edge: 0 = Not at all Not being able to stop or control worryin = Not at all Worrying too much about different things: 0 = Not at all Trouble relaxin = Not at all Being so restless that it is hard to sit still: 0 = Not at all Becoming easily annoyed or irritable: 0 = Not at all Feeling afraid as if something awful might happen: 0 = Not at all Total AMA-7 score (0-4 normal; 5-9 mild; 10-14 moderate; 15-21 severe): 0 Source: Developed by Ami Tracy, Americo Pastrana and colleagues, with an educational steven from [employer]. Review of Systems Const Denies chills, Denies fatigue, Denies fever(s) and Denies headache(s) ENT Denies dysphagia, Denies dizziness, Denies otalgia, Denies headache(s), Denies neck pain, Denies odynophagia and Denies sore throat Card Denies chest pain, Denies rapid heart rate, Denies irregular heart rhythm, Denies palpitations and Denies dyspnea Resp Denies chest congestion, Denies cough, Denies dyspnea and Denies wheezing GI Denies abdominal pain, Denies constipation, Denies dysphagia, Denies heartburn, Denies diarrhea, Denies nausea, Denies odynophagia and Denies vomiting Denies difficulty voiding, Denies dysuria and Denies urinary urgency Musc Denies back pain, Denies arthralgias and Denies neck pain Skin/Breast Denies rash Neuro Denies dizziness, Denies headache(s) and Denies paresthesias Psych Denies anxiety and Denies depression Endo Denies fatigue and Denies palpitations Devin/Lymph Denies easy bruising Aller/Immun Denies wheezing Physical exam (Primary Care) Vital Signs: Last Vital Signs Pulse 82 01/28/25 09:25 BP 110/76 01/28/25 09:25 Pulse Ox 98 01/28/25 09:25 Oxygen Delivery Method Room Air 01/28/25 09:25 BMI result Body Mass Index 34.2 Tobacco/Smoking Status: Tobacco use Status Tobacco use date assessed 01/28/25 01/28/25 09:31 Patient Tobacco Use Status Never used Tobacco 01/28/25 09:31 e-Cigarette/Vaping Use Never Used 01/28/25 09:31 PHQ-9: PHQ-9 Score PHQ-9: Total score 0 01/28/25 09:31 Depression Screening Interpretation: Negative Thrive Assessment: Date of Thrive Assessment Date Thrive assessed 01/28/25 01/28/25 09:31 Currently or been in a relationship where the following occur: No concerns reported Const General: no acute distress and alert HENMT Ears: TM's normal bilaterally and EAC's normal Throat: Yes posterior oropharynx normal and Yes tonsils normal (no TP congestion) Neck Neck: Yes no lymphadenopathy and Yes supple Thyroid: Thyroid normal Resp Auscultation: clear to auscultation bilaterally, no rales and no wheezes Cardio Rate: regular rate Rhythm: regular rhythm Heart sounds: no murmurs GI Palpation (GI): Soft to palpation and nontender Auscultation: normal bowel sounds General: Yes no CVA tenderness Back/Spine/Pelvis Back: no CVA tenderness Thoracic/Lumbar Spine: No lumbar spinal tenderness Skin Rashes: no rashes Extrem General: Yes no clubbing, cyanosis or edema Results Reviewed Results Reviewed: Laboratory Tests 05/21/24 10/08/24 09:04 07:54 WBC 9.2 8.1 Hgb 11.2 L 13.3 Hct 35.7 L 39.7 Plt Count 520 H 416 H Sodium 141 Potassium 3.6 Creatinine 0.67 Estimated GFR > 60 Fasting Glucose 91 Hemoglobin A1c % 5.3 Calcium 8.3 L AST 27 ALT 22 Triglycerides 78 Cholesterol 170 LDL Cholesterol, Calc 102 H HDL Cholesterol 53 Vitamin B12 356 25-OH Vitamin D Total 12.6 L TSH 1.60 Coding Level of Care Code Est Pt Level 4 (52094) Diagnoses Iron deficiency anemia, unspecified iron deficiency anemia type D50.9 Iron deficiency anemia type: unspecified iron deficiency Mild intermittent asthma without complication J45.20 Asthma severity: mild Asthma persistence: intermittent Asthma complication type: uncomplicated Gastroesophageal reflux disease without esophagitis K21.9 Esophagitis presence: without esophagitis Arthralgia, unspecified joint M25.50 Joint pain location: unspecified Constipation, unspecified constipation type K59.00 Constipation type: unspecified constipation type Vitamin D deficiency E55.9 Seasonal allergic rhinitis due to pollen J30.1 Allergic rhinitis trigger: pollen Allergic rhinitis seasonality: seasonal Anxiety F41.9 Obesity (BMI 30-39.9) E66.9 Additional Codes PHQ-9 - 08646 - PHQ-9 Billing: Yes ([id number]) Assessment & Plan Assessment & Plan (1) Iron deficiency anemia: Comment: Periodically is symptomatic gets iron transfusion secondary to inability to absorb iron. Code(s): D50.9 - Iron deficiency anemia, unspecified Category: Medical Qualifiers: Iron deficiency anemia type: unspecified iron deficiency Qualified Code(s): D50.9 - Iron deficiency anemia, unspecified Plan: Results of her labs done back in October 2024 reviewed and discussed with patient - her H/H was normal then at 13.3/39.7 She gets IV iron infusions with hematology every 6 months or so when needed Will continue to monitor her CBC regularly Follow up with hematology as scheduled (2) Asthma: Code(s): J45.909 - Unspecified asthma, uncomplicated Category: Medical Qualifiers: Asthma severity: mild Asthma persistence: intermittent Asthma complication type: uncomplicated Qualified Code(s): J45.20 - Mild intermittent asthma, uncomplicated Plan: Controlled Continue Flovent HFA 110 mcg 2 inhalations BID and Albuterol HFA 1 to 2 inhal ations Q 6 hours PRN (Rx refilled) (3) GERD (gastroesophageal reflux disease): Code(s): K21.9 - Gastro-esophageal reflux disease without esophagitis Category: Medical Qualifiers: Esophagitis presence: without esophagitis Qualified Code(s): K21.9 - Gastro-esophageal reflux disease without esophagitis Plan: Dietary restrictions reinforced Continue Omeprazole 40 mg QD (4) Arthralgia: Code(s): M25.50 - Pain in unspecified joint Category: Medical Qualifiers: Joint pain location: unspecified Qualified Code(s): M25.50 - Pain in unspecified joint Plan: Involving multiple joints She was concerned about her own risks for lupus or other inflammatory joint disease as her mother was diagnosed with lupus and has been struggling with it for years She was seen by rheumatology a few months ago and underwent evaluation - she was sent for some labs to screen for any underlying autoimmune disease and she was relieved to find out that all of her tests have come back normal/negative Follow up with rheumatology as scheduled or as needed (5) Constipation: Code(s): K59.00 - Constipation, unspecified Category: Medical Qualifiers: Constipation type: unspecified constipation type Qualified Code(s): K59.00 - Constipation, unspecified Plan: Patient is encouraged again on increased oral fluids and dietary fiber intake She has been prescribed Miralax and Senna Lax by GI previously but patient has not yet really started taking these - she was reportedly told by pharmacy that her insurance will not cover her Rx as they are all available OTC Follow up with GI as scheduled (6) Vitamin D deficiency: Code(s): E55.9 - Vitamin D deficiency, unspecified Category: Medical Plan: She was advised that her Vitamin D level was still very low on her recent labs Will start her back on Vitamin D3 2000 units QD (7) Allergic rhinitis: Code(s): J30.9 - Allergic rhinitis, unspecified Category: Medical Qualifiers: Allergic rhinitis trigger: pollen Allergic rhinitis seasonality: seasonal Qualified Code(s): J30.1 - Allergic rhinitis due to pollen Plan: Continue Cetirizine 10 mg once a day as needed, Montelukast 10 mg once a day and Fluticasone nasal spray 50 mcg 1 spray into each nostril once a day (8) Anxiety: Code(s): F41.9 - Anxiety disorder, unspecified Category: Medical Plan: Continue Hydroxyzine 25 mg every 8 hours as needed She was also on Escitalopram 10 mg QD in the past but she self-discontinued the medication a while back as she felt that it was not helping much (9) Obesity (BMI 30-39.9): Comment: S/P gastric bypass surgery 02/2016 Code(s): E66.9 - Obesity, unspecified Category: Medical Plan: Reinforced diet/exercise as tolerated/lose weight She has been seeing weight management for a few months now but does not feel that she can comply with their regimented 3 proteins shakes a day Per her request, we tried starting her on Zepbound 2.5 mg SQ once a week but her insurance declined to cover the Rx She is advised to continue following up with weight management as scheduled and will be checking with them on this to see if they can help get her on a GLP-1 to help her lose weight Plan To return as scheduled in September 2025 for her next annual physical examination Orders: Orders Complete Blood Count Auto Diff 09/07/25 D64.9 - Anemia, unspecified, Z00.00 - Encounter for general adult medical examination without abnormal findings Lipid Panel 09/07/25 E78.00 - Pure hypercholesterolemia, unspecified, Z00.00 - Encounter for general adult medical examination without abnormal findings TSH reflex Free T4 09/07/25 E78.00 - Pure hypercholesterolemia, unspecified, Z00.00 - Encounter for general adult medical examination without abnormal findings Comprehensive [place]. Panel Fast 09/07/25 E78.00 - Pure hypercholesterolemia, unspecified, Z00.00 - Encounter for general adult medical examination without abnormal findings UA CC w/rflx Micro + Cult 09/07/25 R30.0 - Dysuria, Z00.00 - Encounter for general adult medical examination without abnormal findings Vitamin D 25-OH Total 09/07/25 E55.9 - Vitamin D deficiency, unspecified, Z00.00 - Encounter for general adult medical examination without abnormal findings Medications: New cholecalciferol (vitamin D3) 50 mcg PO DAILY 90 caps 3RF 90 days E55.9 - Vitamin D deficiency, unspecified Refilled albuterol sulfate 90 mcg/actuation 2 puffs PO QID PRN 8.5 grams 5RF shortness of breath or wheezing 30 days
== END 2025-01-28 10:02 | disposition home or self-care (01) ==
LOC: HO.HMCH 09:17
PROVIDERS: PCP Internal Medicine; Visit Provider Internal Medicine
DX: D50.9 Iron deficiency anemia, unspecified (principal); J45.20 Mild intermittent asthma, uncomplicated; K21.9 Gastro-esophageal reflux disease without esophagitis; M25.50 Pain in unspecified joint; K59.00 Constipation, unspecified; E55.9 Vitamin D deficiency, unspecified; J30.1 Allergic rhinitis due to pollen; F41.9 Anxiety disorder, unspecified; E66.9 Obesity, unspecified; Z68.34 Body mass index [BMI] 34.0-34.9, adult

== ENCOUNTER → 2025-01-28 09:16 | Outpatient (BNVA) | payer OTHER, SELFPAY | PROVIDERS: PCP Internal Medicine; Visit Provider Internal Medicine | DX: J45.20 Mild intermittent asthma, uncomplicated (principal); K21.9 Gastro-esophageal reflux disease without esophagitis; D50.9 Iron deficiency anemia, unspecified; M25.50 Pain in unspecified joint; K59.00 Constipation, unspecified; E55.9 Vitamin D deficiency, unspecified; J30.1 Allergic rhinitis due to pollen; F41.9 Anxiety disorder, unspecified; E66.9 Obesity, unspecified; Z68.34 Body mass index [BMI] 34.0-34.9, adult | CPT/HCPCS: 96127; 99212 ==

== ENCOUNTER 2025-02-13 15:10 | Outpatient (AMB) | payer OTHER, SELFPAY ==
--- NOTE | 2025-02-13 15:02 | A.OFFVIS_ITS ---
VS Expanded 02/13/25 15:05 Height 5 ft 2 in Weight 183 lb BMI 33.5 Intake Visit Reasons: TV PO GBP 02/16/2016 Allergies oxycodone (OXYCODONE) Allergy (Severe, Verified 02/04/25 09:00) ANAPHYLAXIS (Tylenol #3 is o.k.) morphine (MORPHINE) Allergy (Intermediate, Verified 02/04/25 09:00) HIVES/DIFF BREATHING (tylenol #3 is o.k.) Medication List - Last Reconciled 02/13/25 by BELTRAN Rnodon albuterol sulfate 90 mcg/actuation 2 puffs PO QID PRN 30 days cetirizine 10 mg PO DAILY cholecalciferol (vitamin D3) 50 mcg PO DAILY 90 days fluticasone propionate 110 mcg/actuation (Flovent HFA) 2 puffs inhalation BID 30 days omeprazole 40 mg PO DAILY HPI Comments Details: 43-year-old female presents to the office for follow-up gastric bypass performed on 02/16/2016. Weight today is 183 lb with a BMI of 33. She was last seen in the office about 4 months ago with a weight of 197.4 pounds. She was experiencing anxiety and snacking between mealtimes. She did self-pay for tirzepatide for the last 2 months. However this is getting very expensive. She previously tried phentermine years ago. at last visit suggested meal plan of: true[x] Media shake 30g protein for breakfast and lunch meal with 6 forks and 6 forks sometimes forgets to eat, but tries to keep a schedule exercise: PF 2 x per week, treadmill 1 hr, 300 previously; has not exercised in a few weeks [facility] Medical History Vitamin D deficiency Allergic rhinitis Anxiety GERD (gastroesophageal reflux disease) Asthma Obesity (BMI 30-39.9) Intestinal malabsorption following gastrectomy Surgical History History of tubal ligation History of breast biopsy H/O bilateral breast reduction surgery History of cholecystectomy History of appendectomy S/P gastric bypass Hx of laparoscopic gastric banding Hx of appendectomy Hx laparoscopic cholecystectomy Family History Father No problems noted. Mother Arthritis Obesity Brother No problems noted. Brother No problems noted. Sister No problems noted. Sister No problems noted. Sister No problems noted. Son No problems noted. Son No problems noted. Daughter No problems noted. Father No problems noted. 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 Cognitive needs: No Hearing needs: No Vision needs: Yes (Glasses/ Contact lenses) Telehealth Telehealth Telehealth Platform: Telephone Location of provider rendering services: practice address Location of patient: address on file Patient Identification confirmed using: Name, : Yes Telehealth method: voice only Patient verbally consented to treatment: Yes Patient verbally consented to billing insurance company: Yes Patient informed of any privacy concerns related to visit: Yes Minutes spent on Phone/Video with Pt.: 15 Assessment & Plan Assessment & Plan (1) Obesity (BMI 30-39.9): Comment: S/P gastric bypass surgery 02/2016 Code(s): E66.9 - Obesity, unspecified Category: Medical (2) S/P gastric bypass: Comment: DOS 02/16/16, Dr. Salazar Code(s): Z98.84 - Bariatric surgery status Category: Surgical Plan Pt is interested in starting phentermine. I discussed that she is not currently a candidate for GLP1 therapy covered by insurance. Reviewed contraindications and side effects of phentermine. Pt understands the requirement of daily BP monitoring prior to dosing. If SBP > 140 or DBP >90 do not take phentermine that day. Text me BP readings daily. RTC 3mo TV.
[2025-02-13 15:05] VITALS: BMI 33.5
== END 2025-02-13 15:18 | disposition home or self-care (01) ==
LOC: HO.HBS 15:10
PROVIDERS: PCP Internal Medicine; Visit Provider Physician Assistant Surgical
DX: E66.9 Obesity, unspecified (principal); Z98.84 Bariatric surgery status
CPT/HCPCS: 99214